=== PATIENT | female | born 1985 | race Caucasian/White ===

== ENCOUNTER 2017-07-27 22:14 | Emergency (ER) | payer MEDICARE ==
[~2017-07-27] VITALS: Ht 165.1 cm; Wt 52.2 kg
--- OUTSIDE RECORDS SUMMARY | 2017-07-27 22:27 | External Medical Summary Rpt | CCD ---
Author Author , GARRETT TUCKER Address Unknown Phone [email or web address] Care Team Providers Care Biology Laboratory Assistant Name Role Phone [facility] Unavailable Unavailable CENTER, [place] [facility] BRII LACEY Y, Unavailable Unavailable BROMNEIDA, BRII Y KYLE RAYMOND, Unavailable Unavailable KYLE RAYMOND [facility], [facility] ROSA CARLOS, Unavailable Unavailable ROSA CARLOS RONDAL E, Unavailable Unavailable DIEGO ANAYA EDWARD T, Unavailable Unavailable MIKAEL PORTER [facility] Unavailable Unavailable DRUGS, [facility] RACE, AFSHAN Lacy, RACE, Unavailable Unavailable JUANITA CHAUDHARY, Unavailable Unavailable JUANITA [facility] Unavailable [facility], [facility] Unavailable Unavailable CTR, [facility] YUMI CUNNING[place], Unavailable Unavailable [facility] [place] STRFERNIE JIMENEZ, Unavailable Unavailable STRJONOING MIGUEL ALANIZ, Unavailable Unavailable MIGUEL HINTON [facility] PEDIA, [facility] PEDIA Purpose Continuity of Care Document - 05-22-2007 through 2016 Problems Code Diagnosis DOS Provider Status 4476 UNSPECIFIED 10-13-2009 [facility] II 7242 LUMBAGO 10-05-2009 [facility] N EMERGENCY PHYS INC 8472 LUMBAR 10-05-2009 [facility] SPRAIN AND N EMERGENCY STRAIN PHYS INC E9278 OTH 10-05-2009 [facility] OVEREXERT&S N EMERGENCY TRENUOUS&RE PHYS INC PETITIVE MVMNTS/LOAD S V2542 SURVEILLANC 09-22-[address] [facility] E PREV PRSC INTRAUTERN CNTRACPT DEVC V700 ROUTINE 09-22-[address] [facility] GENERAL MEDICAL EXAM@HEALTH CARE FACL 14311 DYSPLASIA 12-08-2008 [facility] ZONIA UNSPECIFIED [facility] 86185 MODERATE 11-17-2008 [facility] 2331 CARCINOMA 11-03-2008 IN SITU OF [facility] 47167 PAP SMER 10-25-2008 [facility]/CO CERV W/HI HEALTH GRADE CENTRAL SQUAMOUS BANK ACCT INTRAEPITH LES 2662 OTHER 10-06-2008 DHS/CO B-COMPLEX HEALTH DEFICIENCIE CENTRAL S BANK ACCT V1329 PERSONAL HX 10-06-2008 [facility]&OBST ETRIC D/O V1589 OTH SPEC 10-06-2008 [facility]ZAR[facility] OT V2549 SURVEILLANC 10-06-2008 DHS/CO E OTH PREV HEALTH PRSC CENTRAL CONTRACEPT BANK ACCT METHOD 5990 URINARY 09-09-[address] [facility] TRACT INFECTION SITE NOT SPECIFIED 4619 ACUTE 06-08-[address] [facility] SINUSITIS, UNSPECIFIED 5589 OTH&UNSPEC 06-08-[address] [facility] NONINFECTIO US GASTROENTER ITIS&COLITI S 3671 MYOPIA 09-16-2007 [facility] V3000 SINGLE 05-22-2007 [facility] PEDIA W/O Medications Na ND Rx Da Fi Fi Am Da Di Ph RX Ph St me C No te ll ll ou ys ag ar # ys at rm s nt no ma ic us Or Da si cy ia de te s n re d CY 59 02 02 00 15 5 PI 60 CO Ac CL 74 -1 -2 .0 C/ 43 NN ti OB 60 8- 6- 00 DB 44 ve EN 21 20 20 A 7 FA ZA 10 10 10 FA RR KS 6 SD AH IN LY J E 5 DI MG SC TA DR CHANTAL UG ET S NA 68 02 02 00 20 10 PI 60 CO Ac KS 46 -1 -2 .0 C/ 43 NN ti OX 20 8- 6- 00 DB 51 ve EN 19 20 20 A 1 FA 00 10 10 FA RR 50 5 SD AH 0 LY J MG DI TA SC BL ET DR CHATMAN S LO 51 01 01 00 60 30 PI 60 HU Ac RA 67 -1 -2 .0 C/ 40 GH ti TA 22 1- 8- 00 DB 48 ES ve DI 07 20 20 A 0 NE 30 10 10 FA PA 5 8 SD TR LY IC MG K /5 DI D SC ML DR PINA UG RU S P DE 60 04 11 04 5. 17 PI 60 CA Ac SM 50 -2 -1 00 C/ 20 RP ti OP 50 7- 9- 0 DB 55 EN ve RE 81 20 20 A 4 TE SS 50 09 09 FA R IN 0 SD SD LY CH 0. EL 1 DI LE MG SC /M L DR ELY UG RA S Y DE 60 04 11 03 5. 17 PI 60 CA Ac SM 50 -2 -0 00 C/ 20 RP ti OP 50 7- 5- 0 DB 55 EN ve RE 81 20 20 A 4 TE SS 50 09 09 FA R IN 0 SD SD LY CH 0. EL 1 DI LE MG SC /M L DR ELY RA S Y DE 60 04 10 02 5. 17 PI 60 CA Ac SM 50 -2 -2 00 C/ 20 RP ti OP 50 7- 2- 0 DB 55 EN ve RE 81 20 20 A 4 TE SS 50 09 09 FA R IN 0 SD SD LY CH 0. EL 1 DI LE MG SC /M L DR ELY RA S Y DE 60 04 10 01 5. 17 PI 60 CA Ac SM 50 -2 -0 00 C/ 20 RP ti OP 50 7- 8- 0 DB 55 EN ve RE 81 20 20 A 4 TE SS 50 09 09 FA R IN 0 SD SD LY CH 0. EL 1 DI LE MG SC /M L DR ELY RA S Y DE 60 04 09 00 5. 17 PI 60 CA Ac SM 50 -2 -1 00 C/ 20 RP ti OP 50 7- 0- 0 DB 55 EN ve RE 81 20 20 A 4 TE SS 50 09 09 FA R IN 0 SD SD LY CH 0. EL 1 DI LE MG SC /M L DR ELY RA S Y DE 60 04 08 05 5. 17 PI 60 SM Ac SM 50 -2 -2 00 C/ 20 IT ti OP 50 7- 7- 0 DB 50 H ve RE 81 20 20 A 4 II SS 50 09 09 FA I IN 0 SD WI LY LB 0. UR 1 DI N MG SC J /M L DR ELY UG RA S Y DE 60 04 07 04 5. 17 PI 60 SM Ac SM 50 -2 -3 00 C/ 20 IT ti OP 50 7- 0- 0 DB 50 H ve RE 81 20 20 A 4 II SS 50 09 09 FA I IN 0 SD WI LY LB 0. UR 1 DI N MG SC J /M L DR ELY UG RA S Y DE 60 04 07 03 5. 17 PI 60 SM Ac SM 50 -2 -1 00 C/ 20 IT ti OP 50 7- 6- 0 DB 50 H ve RE 81 20 20 A 4 II SS 50 09 09 FA I IN 0 SD WI LY LB 0. UR 1 DI N MG SC J /M L DR JHOANA CHATMAN RA S Y DE 60 04 06 02 5. 17 PI 60 SM Ac SM 50 -2 -1 00 C/ 20 IT ti OP 50 7- 8- 0 DB 50 H ve RE 81 20 20 A 4 II SS 50 09 09 FA I IN 0 SD WI LY LB 0. UR 1 DI N MG SC J /M L DR JHOANA CHATMAN RA S Y DE 60 04 05 01 5. 17 PI 60 SM Ac SM 50 -2 -2 00 C/ 20 IT ti OP 50 7- 1- 0 DB 50 H ve RE 81 20 20 A 4 II SS 50 09 09 FA I IN 0 SD WI LY LB 0. UR 1 DI N MG SC J /M L DR JHOANA CHATMAN RA S Y DE 60 04 05 00 5. 17 PI 60 SM Ac SM 50 -2 -0 00 C/ 20 IT ti OP 50 7- 7- 0 DB 50 H ve RE 81 20 20 A 4 II SS 50 09 09 FA I IN 0 SD WI LY LB 0. UR 1 DI N MG SC J /M L DR ELY RA S Y DE 60 12 04 05 5. 17 PI 60 CA Ac SM 50 -3 -2 00 C/ 10 RP ti OP 50 0- 3- 0 DB 87 EN ve RE 81 20 20 A 5 TE SS 50 08 09 FA R IN 0 SD SD LY CH 0. EL 1 DI LE MG SC /M L DR JHOANA CHATMAN RA S Y DE 60 12 03 04 5. 17 PI 60 CA Ac SM 50 -3 -2 00 C/ 10 RP ti OP 50 0- 6- 0 DB 87 EN ve RE 81 20 20 A 5 TE SS 50 08 09 FA R IN 0 SD SD LY CH 0. EL 1 DI LE MG SC /M L DR JHOANA CHATMAN RA S Y DE 60 12 03 03 5. 17 PI 60 CA Ac SM 50 -3 -1 00 C/ 10 RP ti OP 50 0- 2- 0 DB 87 EN ve RE 81 20 20 A 5 TE SS 50 08 09 FA R IN 0 SD SD LY CH 0. EL 1 DI LE MG SC /M L DR JHOANA CHATMAN RA S Y DE 60 12 02 02 5. 17 PI 60 CA Ac SM 50 -3 -2 00 C/ 10 RP ti OP 50 0- 6- 0 DB 87 EN ve RE 81 20 20 A 5 TE SS 50 08 09 FA R IN 0 SD SD LY CH 0. EL 1 DI LE MG SC /M L DR ELY UG RA S Y DE 60 12 02 01 5. 17 PI 60 CA Ac SM 50 -3 -1 00 C/ 10 RP ti OP 50 0- 2- 0 DB 87 EN ve RE 81 20 20 A 5 TE SS 50 08 09 FA R IN 0 SD SD LY CH 0. EL 1 DI LE MG SC /M L DR JHOANA CHATMAN RA S Y 00 01 01 00 9. 3 PI 60 RA Ac 60 -2 -3 00 C/ 12 CE ti 35 3- 0- 0 DB 92 ve 14 20 20 A 0 DA 13 09 09 FA 2 SD D LY F DI SC DR LURDES S NI 00 01 01 00 20 10 PI 60 RA Ac TR 18 -2 -3 .0 C/ 12 CE ti OF 50 3- 0- 00 DB 92 ve UR 12 20 20 A 1 DA AN 21 09 09 FA TO 0 SD D IN LY F MO DI NO SC -M CR DR LURDES 10 S 0 MG DE 60 12 01 00 5. 17 PI 60 CA Ac SM 50 -3 -1 00 C/ 10 RP ti OP 50 0- 5- 0 DB 87 EN ve RE 81 20 20 A 5 TE SS 50 08 09 FA R IN 0 SD SD LY CH 0. EL 1 DI LE MG SC /M L DR ELY UG RA S Y DE 60 10 01 03 5. 17 PI 60 SM Ac SM 50 -0 -0 00 C/ 03 IT ti OP 50 7- 1- 0 DB 67 H ve RE 81 20 20 A 5 II SS 50 08 09 FA I IN 0 SD WI LY LB 0. UR 1 DI N MG SC J /M L DR ELY RA S Y DE 60 10 12 03 5. 17 PI 60 SM Ac SM 50 -0 -1 00 C/ 03 IT ti OP 50 7- 8- 0 DB 67 H ve RE 81 20 20 A 5 II SS 50 08 08 FA I IN 0 SD WI LY LB 0. UR 1 DI N MG SC J /M L DR ELY UG RA S Y DE 60 10 12 02 5. 17 PI 60 SM Ac SM 50 -0 -0 00 C/ 03 IT ti OP 50 7- 4- 0 DB 67 H ve RE 81 20 20 A 5 II SS 50 08 08 FA I IN 0 SD WI LY LB 0. UR 1 DI N MG SC J /M L DR JHOANA CHATMAN RA S Y CE 68 11 11 00 60 10 PI 60 BROOKE Ac FD 18 -1 -2 .0 C/ 06 RR ti IN 00 1- 0- 00 DB 82 OW ve IR 72 20 20 A 9 DA 32 08 08 FA LE 25 0 SD -C 0 LY OX MG /5 DI PE SC TE ML R DR Ana CHATMAN SP S 64 11 11 00 30 10 PI 60 BROOKE Ac 37 -1 -2 .0 C/ 06 RR ti 60 1- 0- 00 DB 83 OW ve 72 20 20 A 0 DA 63 08 08 FA LE 0 SD -C LY OX DI PE SC TE R DR Ana CHATMAN S DE 60 10 11 01 5. 17 PI 60 SM Ac SM 50 -0 -0 00 C/ 03 IT ti OP 50 7- 7- 0 DB 67 H ve RE 81 20 20 A 5 II SS 50 08 08 FA I IN 0 SD WI LY LB 0. UR 1 DI N MG SC J /M L DR JHOANA CHATMAN RA S Y KS 68 10 11 00 20 5 PI 60 CA Ac OM 38 -2 -0 .0 C/ 04 RP ti ET 20 2- 7- 00 DB 92 EN ve MILNER 04 20 20 A 7 TE ZI 11 08 08 FA R NE 0 SD SD LY CH 25 EL DI LE MG SC TA DR CHANTAL CHATMAN ET S [place] 00 10 11 00 6. 5 PI 60 CA Ac IT 78 -2 -0 00 C/ 04 RP ti HR 11 2- 7- 0 DB 92 EN ve OM 49 20 20 A 8 TE YC 66 08 08 FA R IN 8 SD SD LY CH 25 EL 0 DI LE MG SC TA DR CHANTAL CHATMAN ET S DE 60 10 10 00 5. 17 PI 60 SM Ac SM 50 -0 -2 00 C/ 03 IT ti OP 50 7- 3- 0 DB 67 H ve RE 81 20 20 A 5 II SS 50 08 08 FA I IN 0 SD WI LY LB 0. UR 1 DI N MG SC J /M L DR JHOANA CHATMAN RA S Y AZ 59 10 10 00 15 5 PI 60 BROOKE Ac IT 76 -0 -2 .0 C/ 03 RR ti HR 23 7- 3- 00 DB 66 OW ve OM 11 20 20 A 5 DA YC 00 08 08 FA LE IN 1 SD -C LY OX 10 0 DI PE MG SC TE /[address] Ana CHATMAN S PEREZ SP 64 10 10 00 30 10 PI 60 BROOKE Ac 37 -0 -2 .0 C/ 03 RR ti 60 7- 3- 00 DB 66 OW ve 72 20 20 A 3 DA 63 08 08 FA LE 0 SD -C LY OX DI PE SC TE R DR Ana Cat HY 24 10 10 00 29 7 PI [address] 38 -0 -2 .0 C/ 03 RR ti OC 50 7- 3- 00 DB 65 OW ve OR 19 20 20 A 7 DA TI 00 08 08 FA LE SO 3 SD -C NE LY OX 0. DI PE 5% SC TE R CR DR Ana CHATMAN M S DE 60 09 09 02 5. 16 PI 51 SM Ac SM 50 -2 -2 00 C/ 85 IT ti OP 50 7- 6- 0 DB 17 H ve RE 81 20 20 A II SS 50 07 08 FA I IN 0 SD WI LY LB 0. UR 1 DI N MG SC J /M L DR JHOANA CHATMAN RA S Y DE 60 09 09 01 5. 16 PI 51 No Ac SM 50 -2 -1 00 C/ 85 t ti OP 50 7- 1- 0 DB 17 Av ve RE 81 20 20 A ai SS 50 07 08 FA la IN 0 SD bl LY e 0. 1 DI MG SC /M L DR JHOANA CHATMAN S Y DE 60 09 08 00 5. 16 PI 51 No Ac SM 50 -2 -1 00 C/ 85 t ti OP 50 7- 4- 0 DB 17 Av ve RE 81 20 20 A ai SS 50 07 08 FA la IN 0 SD bl LY e 0. 1 DI MG SC /M L DR JHOANA CHATMAN RA S Y DE 60 09 08 11 5. 16 PI 48 No Ac SM 50 -2 -0 00 C/ 76 t ti OP 50 7- 1- 0 DB 16 Av ve RE 81 20 20 A ai SS 50 07 08 FA la IN 0 SD bl LY e 0. 1 DI MG SC /M L DR JHOANA CHATMAN RA S Y DE 60 09 07 10 5. 16 PI 48 No Ac SM 50 -2 -0 00 C/ 76 t ti OP 50 7- 3- 0 DB 16 Av ve RE 81 20 20 A ai SS 50 07 08 FA la IN 0 SD bl LY e 0. 1 DI MG SC /M L DR JHOANA CHATMAN RA S Y DE 60 09 05 08 5. 16 PI 48 No Ac SM 50 -2 -2 00 C/ 76 t ti OP 50 7- 2- 0 DB 16 Av ve RE 81 20 20 A ai SS 50 07 08 FA la IN 0 SD bl LY e 0. 1 DI MG SC /M L DR ELY UG RA S Y NE 24 04 05 00 10 7 PI 50 No Ac OM 20 -2 -0 .0 C/ 91 t ti YC 80 2- 8- 00 DB 96 Av ve IN 63 20 20 A ai -P 11 08 08 FA la OL 0 SD bl YM LY e YX IN DI -H SC C EA DR R LURDES SO S LN AM 00 04 05 00 10 10 PI 50 No Ac OX 09 -2 -0 0. C/ 89 t ti IC 34 1- 8- 00 DB 66 Av ve IL 15 20 20 0 A ai LI 57 08 08 FA la N 3 SD bl 25 LY e 0 MG DI /[address] CHATMAN PEREZ S SP DE 60 09 05 07 5. 16 PI 48 No Ac SM 50 -2 -0 00 C/ 76 t ti OP 50 7- 8- 0 DB 16 Av ve RE 81 20 20 A ai SS 50 07 08 FA la IN 0 SD bl LY e 0. 1 DI MG SC /M L DR JHOANA CHATMAN RA S Y DE 60 09 04 06 5. 17 PI 48 No Ac SM 50 -2 -1 00 C/ 76 t ti OP 50 7- 0- 0 DB 16 Av ve RE 81 20 20 A ai SS 50 07 08 FA la IN 0 SD bl LY e 0. 1 DI MG SC /M L DR JHOANA CHATMAN RA S Y DE 60 09 04 05 5. 17 PI 48 No Ac SM 50 -2 -0 00 C/ 76 t ti OP 50 7- 7- 0 DB 16 Av ve RE 81 20 20 A ai SS 50 07 08 FA la IN 0 SD bl LY e 0. 1 DI MG SC /M L DR ELY UG RA S Y 64 02 03 00 30 30 PI 50 No Ac 37 -2 -2 .0 C/ 28 t ti 60 2- 6- 00 DB 84 Av ve 72 20 20 A ai 63 08 08 FA la 0 SD bl LY e DI SC DR UG S DE 60 09 03 04 5. 17 PI 48 No Ac SM 50 -2 -2 00 C/ 76 t ti OP 50 7- 6- 0 DB 16 Av ve RE 81 20 20 A ai SS 50 07 08 FA la IN 0 SD bl LY e 0. 1 DI MG SC /M L DR JHOANA CHATMAN RA S Y CL 51 02 03 00 30 12 PI 50 No Ac OT 67 -2 -2 .0 C/ 28 t ti RI 21 2- 6- 00 DB 83 Av ve MA 27 20 20 A ai ZO 50 08 08 FA la LE 2 SD bl LY e 1% DI CR SC EA M DR LURDES Cat DE 60 09 03 03 5. 17 PI 48 No Ac SM 50 -2 -2 00 C/ 76 t ti OP 50 7- 4- 0 DB 16 Av ve RE 81 20 20 A ai SS 50 07 08 FA la IN 0 SD bl LY e 0. 1 DI MG SC /M L DR JHOANA CHATMAN RA S Y Results Labs Lab Lab Date Result Refere Interp Status Commen Order Detail nces retati t Range on Pap Smear Report (06-07-2013) Medical complet ed Therapy : IUD LMP: 3 complet 013 MONTHS ed AGO CLINICA complet 013 L ed HISTORY CLINICA complet LHISTOR ed YPAP A. complet VAGINAL ed /CERVIC AL/ENDO CERVICA L SCREENI NG AUTO THIN LAYER PREP TISSUES complet 013 : ed DEMAR : home ed 3- SUBM DR: Pj Davalos SPEC : [id number] ed 6 RECD : STATUS: BIGG FRAZIER NUM : [id number] ------- complet ------- ed ------- ------- ------- ------- ------- ------- ------- ------- ------- --- BOB complet Merritt MARIA DEL CARMEN Cat ed 28/F [facility] [id number] MARIO Wan Patient complet ed Age/Sex Locatio n Account Attendi ng Physici an RUN complet 013 TIME: ed 1210 RUN complet 013 DATE: ed 3 [facility] LAB *LIVE* PAGE 1 Signed complet 013 ed ___(sig nature on file)__ __ Alex Kyle MD 3 1210 Additio complet 013 nal ed Comment s: Shift complet 013 in ed obi suggest nicole of bacteri al vaginos is Negativ complet 013 e for ed intraep ithelia l lesion or maligna ncy GENERAL complet 013 ed CATEGOR IZATION : Endocer complet 013 vical ed or metapla stic cells present Satisfa complet ctory ed for evaluat ion ADEQUAC complet 013 Y OF ed THE SPECIME N: Additio complet nal ed Info: Previou s pap 9 DDTG-CE HG (SCR). Procedures Procedure DOS Code Location Performer Comment BLOOD 84079 [place] HASSAN COUNT 0 [facility] CENTER DIFRNTL WBC C-REACTIV 22679 [place] Cheng PROTEIN 0 [facility] [place] [address] [place], SURG 9 [facility] GROSS&[place] [address] PATHOLOGY [facility] ROSCOPIC EXAM CONIZATIO 41[address] М[facility]РИНА [place], N CERVIX 9 AND JUANITA W/WO D&C ZONIA RPR ELTRD PSC EXC COLPOSCOP 63541 М[facility]РИНА [place], Y CERVIX 9 AND JUANITA UPPR/ADJC ZONIA NT VAGINA [place] [address] ROSCOPIC EXAM CHOLESTER 07[address] DHS/CO BATH CO OL 9 [facility] LE BLOOD BANK ACCT TOTAL GLUC BLD 79845 DHS/CO BATH CO GLUC MNTR 9 [facility] CLEARED BANK ACCT FDA SPEC HOME USE BLOOD 44528 DHS/CO BATH CO COUNT 9 [facility] HEMOGLOBI [facility] N BANK ACCT IADNA 89656 DHS/CO BATH CO CHLAMYDIA 9 [facility] TRACHOMAT BANK ACCT IS AMPLIFIED PROBE TQ IADNA 70522 DHS/CO BATH CO NEISSERIA 9 [facility] GONORRHOE BANK ACCT AE AMPLIFIED PROBE TQ CYTP [address] [facility] CARLOS, CERVICAL/ 9 [facility] REQ INTERP PHYSICIAN CYTP [address] [facility]ANK CERV/VAG 9 MEDICAL MEDICAL AUTO THIN CTR CTR LAYER PREP MNL SCREEN URNLS DIP 17633 [place], [address] [place] [address] F STICK/TAB LET RGNT AUTO W/O MICROSCOP Y OPHTH 41493 [facility] 8 AND EDWARD T XM&EVAL [facility]ERMAN COMPRHNSV VISION ESTAB PT CTR PLLC 1/> DETERMINA 84713 [facility] PORTER TION 8 AND EDANGELA T REFRACTIV PORTER E STATE VISION CTR PLL[facility] HX&XM NML 45009 [facility]IFL[facility] NB INFT 7 Y OF RHY INITIATIO [place] N DX&TX PEDIA Encounters Encounter Start End Date Code Location Performer Type Date OFFICE 55949 [facility] LARRY CUNN[place] 0 0 PHYSICIAN YUMI VARGAS 20 S MINUTES CORPORATI ON II HOSPITAL [place] - 0 0 [facility] EM[facility]GENC[facility] [address] [facility] JACLYN, 0 0 TANESHA CORTEZ E DEPARTMEN EMERGENCY T VISIT PHYS INC MODERATE SEVERITY OFFICE 37009 [place] [facility] 0 0 [facility] BRII T VISIT Y 15 MINUTES OFFICE 71334 LARRY PEREZ 9 9 AND JUANITA T VISIT ZONIA 10 PSC MINUTES [facility] - 9 9 [facility] OFFICE 81932 МАРИНА [facility], CONSULTAT 9 9 AND JUANITA BRAR NEW/ESTAB PSC PATIENT 15 MIN OFFICE 99050 [facility] CONSULTAT 9 9 AND JUANITA BRAR NEW/ESTAB PSC PATIENT 30 MIN [facility] 9 9 [facility] OFF[facility] 87836 DHS/CO BATH CO OUTPATIEN 9 9 [facility] T VISIT CENTRAL ODESSA 15 BANK ACCT MINUTES PERIODIC 62784 DHS/CO BATH CO PREVENTIV 9 9 [facility] E MED EST [facility] PATIENT BANK ACCT 18-39 YRS [facility] 9 9 MEDICAL OUTPATIEN [facility] T OFFICE 48879 [facility] [place], OUTPATIEN 9 9 [facility] VISIT 15 MINUTES OFFICE 75025 BATH RAYMOND OUTPATIEN 8 8 [place] [address] KYLE [facility]
--- OUTSIDE RECORDS SUMMARY | 2017-07-27 22:27 | External Medical Summary Rpt | CCD ---
Author Author , GARRETT TUCKER Address Unknown Phone Care Team Providers Care Endoscopy Tech Name Role Phone [facility] Unavailable Unavailable CENTER, [facility] BRII LACEY Y, Unavailable Unavailable BROMNEIDA, BRII Y KYLE RAYMOND, Unavailable Unavailable KYLE RAYMOND [facility] ROSA CARLOS, Unavailable Unavailable ROSA CARLOS RONDAL E, Unavailable Unavailable DIEGO ANAYA EDWARD T, Unavailable Unavailable MIKAEL PORTER [facility] Unavailable Unavailable DRUGS, [facility] RACE, AFSHAN Lacy, RACE, Unavailable Unavailable JUANITA CHAUDHARY, Unavailable Unavailable JUANITA [facility] Unavailable [facility], [facility] Unavailable Unavailable CTR, [facility] YUMI CUNNINGHAM, Unavailable Unavailable YUMI CUNNINGHAM STRFERNIE JIMENEZ, Unavailable Unavailable STRJONOING MIGUEL ALANIZ, Unavailable Unavailable MIGUEL HINTON [facility] PEDIA, [facility] PEDIA Purpose Continuity of Care Document - 05-22-2007 through 2016 Problems Code Diagnosis DOS Provider Status 4476 UNSPECIFIED 10-13-2009 [facility] II 7242 LUMBAGO 10-05-2009 [facility] N EMERG[facility]Y [facility]YS INC 8472 LUMBAR 10-05-2009 [facility] SPRAIN AND N EMERGENCY STRAIN PHYS INC E9278 OTH 10-05-2009 [facility] OVEREXERT&S N EMERGENCY TRENUOUS&RE PHYS INC PETITIVE MVMNTS/LOAD S V2542 SURVEILLANC 09-22-2009 [facility] E PREV PRSC INTRAUTERN CNTRACPT DEVC V700 ROUTINE 09-22-2009 [facility] GENERAL MEDICAL EXAM@HEALTH CARE FACL 46683 DYSPLASIA 12-08-2008 [facility] ZONIA UNSPECIFIED [facility] 65508 MODERATE 11-17-2008 [facility] 2331 CARCINOMA 11-03-2008 [facility] OF [facility] 21382 PAP SMER 10-25-2008 DHS/CO CERV W/HI HEALTH [...] BANK ACCT METHOD 5990 URINARY 09-09-2008 [facility] TRACT INFECTION SITE NOT SPECIFIED 4619 ACUTE 06-08-2008 [facility] SINUSITIS, UNSPECIFIED 5589 OTH&UNSPEC 06-08-2008 [facility] NONINFECTIO US GASTROENTER ITIS&COLITI S 3671 MYOPIA 09-16-2007 [facility] V3000 SINGLE 05-22-2007 [facility] PEDIA W/O Medications Na ND Rx [...] FA ZA 10 10 10 FA RR WA 6 WI AH IN LY J E 5 DI MG SC TA DR CHANTAL UG ET S NA 68 02 02 00 20 10 PI 60 CO Ac WA 46 -1 -2 .0 C/ 43 NN ti OX 20 8- 6- 00 DB 51 ve EN 19 20 20 A 1 FA 00 10 10 FA RR 50 5 WI AH 0 LY J MG DI TA SC BL ET DR CHATMAN S LO 51 01 01 00 60 30 PI 60 HU Ac RA 67 -1 -2 .0 C/ 40 GH ti TA 22 1- 8- 00 DB 48 ES ve DI 07 20 20 A 0 NE 30 10 10 FA PA 5 8 WI TR LY IC MG K /5 DI D SC ML DR PINA UG RU S P DE 60 04 11 04 5. 17 PI 60 CA Ac SM 50 -2 -1 00 C/ 20 RP ti OP 50 7- 9- 0 DB 55 EN ve RE 81 20 20 A 4 TE SS 50 09 09 FA R IN 0 WI WI LY CH 0. EL 1 DI LE MG SC /M L DR ELY UG RA S Y DE 60 04 11 03 5. 17 PI 60 CA Ac SM 50 -2 -0 00 C/ 20 RP ti OP 50 7- 5- 0 DB 55 EN ve RE 81 20 20 A 4 TE SS 50 09 09 FA R IN 0 WI WI LY CH 0. EL 1 DI LE MG SC /M L DR ELY RA S Y DE 60 04 10 02 5. 17 PI 60 CA Ac SM 50 -2 -2 00 C/ 20 RP ti OP 50 7- 2- 0 DB 55 EN ve RE 81 20 20 A 4 TE SS 50 09 09 FA R IN 0 WI WI LY CH 0. EL 1 DI LE MG SC /M L DR ELY RA S Y DE 60 04 10 01 5. 17 PI 60 CA Ac SM 50 -2 -0 00 C/ 20 RP ti OP 50 7- 8- 0 DB 55 EN ve RE 81 20 20 A 4 TE SS 50 09 09 FA R IN 0 WI WI LY CH 0. EL 1 DI LE MG SC /M L DR ELY RA S Y DE 60 04 09 00 5. 17 PI 60 CA Ac SM 50 -2 -1 00 C/ 20 RP ti OP 50 7- 0- 0 DB 55 EN ve RE 81 20 20 A 4 TE SS 50 09 09 FA R IN 0 WI WI LY CH 0. EL 1 DI LE MG SC /M L DR ELY RA S Y DE 60 04 08 05 5. 17 PI 60 SM Ac SM 50 -2 -2 00 C/ 20 IT ti OP 50 7- 7- 0 DB 50 H ve RE 81 20 20 A 4 II SS 50 09 09 FA I IN 0 WI WI LY LB 0. UR 1 DI N MG SC J /M L DR ELY UG RA S Y DE 60 04 07 04 5. 17 PI 60 SM Ac SM 50 -2 -3 00 C/ 20 IT ti OP 50 7- 0- 0 DB 50 H ve RE 81 20 20 A 4 II SS 50 09 09 FA I IN 0 WI WI LY LB 0. UR 1 DI N MG SC J /M L DR ELY UG RA S Y DE 60 04 07 03 5. 17 PI 60 SM Ac SM 50 -2 -1 00 C/ 20 IT ti OP 50 7- 6- 0 DB 50 H ve RE 81 20 20 A 4 II SS 50 09 09 FA I IN 0 WI WI LY LB 0. UR 1 DI N MG SC J /M L DR JHOANA CHATMAN RA S Y DE 60 04 06 02 5. 17 PI 60 SM Ac SM 50 -2 -1 00 C/ 20 IT ti OP 50 7- 8- 0 DB 50 H ve RE 81 20 20 A 4 II SS 50 09 09 FA I IN 0 WI WI LY LB 0. UR 1 DI N MG SC J /M L DR JHOANA CHATMAN RA S Y DE 60 04 05 01 5. 17 PI 60 SM Ac SM 50 -2 -2 00 C/ 20 IT ti OP 50 7- 1- 0 DB 50 H ve RE 81 20 20 A 4 II SS 50 09 09 FA I IN 0 WI WI LY LB 0. UR 1 DI N MG SC J /M L DR JHOANA CHATMAN RA S Y DE 60 04 05 00 5. 17 PI 60 SM Ac SM 50 -2 -0 00 C/ 20 IT ti OP 50 7- 7- 0 DB 50 H ve RE 81 20 20 A 4 II SS 50 09 09 FA I IN 0 WI WI LY LB 0. UR 1 DI N MG SC J /M L DR ELY RA S Y DE 60 12 04 05 5. 17 PI 60 CA Ac SM 50 -3 -2 00 C/ 10 RP ti OP 50 0- 3- 0 DB 87 EN ve RE 81 20 20 A 5 TE SS 50 08 09 FA R IN 0 WI WI LY CH 0. EL 1 DI LE MG SC /M L DR JHOANA CHATMAN RA S Y DE 60 12 03 04 5. 17 PI 60 CA Ac SM 50 -3 -2 00 C/ 10 RP ti OP 50 0- 6- 0 DB 87 EN ve RE 81 20 20 A 5 TE SS 50 08 09 FA R IN 0 WI WI LY CH 0. EL 1 DI LE MG SC /M L DR JHOANA CHATMAN RA S Y DE 60 12 03 03 5. 17 PI 60 CA Ac SM 50 -3 -1 00 C/ 10 RP ti OP 50 0- 2- 0 DB 87 EN ve RE 81 20 20 A 5 TE SS 50 08 09 FA R IN 0 WI WI LY CH 0. EL 1 DI LE MG SC /M L DR JHOANA CHATMAN RA S Y DE 60 12 02 02 5. 17 PI 60 CA Ac SM 50 -3 -2 00 C/ 10 RP ti OP 50 0- 6- 0 DB 87 EN ve RE 81 20 20 A 5 TE SS 50 08 09 FA R IN 0 WI WI LY CH 0. EL 1 DI LE MG SC /M L DR ELY UG RA S Y DE 60 12 02 01 5. 17 PI 60 CA Ac SM 50 -3 -1 00 C/ 10 RP ti OP 50 0- 2- 0 DB 87 EN ve RE 81 20 20 A 5 TE SS 50 08 09 FA R IN 0 WI WI LY CH 0. EL 1 DI LE MG SC /M L DR JHOANA CHATMAN RA S Y 00 01 01 00 9. 3 PI 60 RA Ac 60 -2 -3 00 C/ 12 CE ti 35 3- 0- 0 DB 92 ve 14 20 20 A 0 DA 13 09 09 FA 2 WI D LY F DI SC DR LURDES S NI 00 01 01 00 20 10 PI 60 RA Ac TR 18 -2 -3 .0 C/ 12 CE ti OF 50 3- 0- 00 DB 92 ve UR 12 20 20 A 1 DA AN 21 09 09 FA TO 0 WI D IN LY F MO DI NO SC -M CR DR LURDES 10 S 0 MG DE 60 12 01 00 5. 17 PI 60 CA Ac SM 50 -3 -1 00 C/ 10 RP ti OP 50 0- 5- 0 DB 87 EN ve RE 81 20 20 A 5 TE SS 50 08 09 FA R IN 0 WI WI LY CH 0. EL 1 DI LE MG SC /M L DR ELY UG RA S Y DE 60 10 01 03 5. 17 PI 60 SM Ac SM 50 -0 -0 00 C/ 03 IT ti OP 50 7- 1- 0 DB 67 H ve RE 81 20 20 A 5 II SS 50 08 09 FA I IN 0 WI WI LY LB 0. UR 1 DI N MG SC J /M L DR ELY RA S Y DE 60 10 12 03 5. 17 PI 60 SM Ac SM 50 -0 -1 00 C/ 03 IT ti OP 50 7- 8- 0 DB 67 H ve RE 81 20 20 A 5 II SS 50 08 08 FA I IN 0 WI WI LY LB 0. UR 1 DI N MG SC J /M L DR ELY UG RA S Y DE 60 10 12 02 5. 17 PI 60 SM Ac SM 50 -0 -0 00 C/ 03 IT ti OP 50 7- 4- 0 DB 67 H ve RE 81 20 20 A 5 II SS 50 08 08 FA I IN 0 WI WI LY LB 0. UR 1 DI N MG SC J /M L DR JHOANA CHATMAN RA S Y CE 68 11 11 00 60 10 PI 60 BROOKE Ac FD 18 -1 -2 .0 C/ 06 RR ti IN 00 1- 0- 00 DB 82 OW ve IR 72 20 20 A 9 DA 32 08 08 FA LE 25 0 WI -C 0 LY OX MG /5 DI PE SC TE ML R DR Ana CHATMAN SP S 64 11 11 00 30 10 PI 60 BROOKE Ac 37 -1 -2 .0 C/ 06 RR ti 60 1- 0- 00 DB 83 OW ve 72 20 20 A 0 DA 63 08 08 FA LE 0 WI -C LY OX DI PE SC TE R DR Ana CHATMAN S DE 60 10 11 01 5. 17 PI 60 SM Ac SM 50 -0 -0 00 C/ 03 IT ti OP 50 7- 7- 0 DB 67 H ve RE 81 20 20 A 5 II SS 50 08 08 FA I IN 0 WI WI LY LB 0. UR 1 DI N MG SC J /M L DR JHOANA CHATMAN RA S Y WA 68 10 11 00 20 5 PI 60 CA Ac OM 38 -2 -0 .0 C/ 04 RP ti ET 20 2- 7- 00 DB 92 EN ve MILNER 04 20 20 A 7 TE ZI 11 08 08 FA R NE 0 WI WI LY CH 25 EL DI LE MG SC TA DR CHANTAL CHATMAN ET S AZ 00 10 11 00 6. 5 PI 60 CA Ac IT 78 -2 -0 00 C/ 04 RP ti HR 11 2- 7- 0 DB 92 EN ve OM 49 20 20 A 8 TE YC 66 08 08 FA R IN 8 WI WI LY CH 25 EL 0 DI LE MG SC TA DR CHANTAL CHATMAN ET S DE 60 10 10 00 5. 17 PI 60 SM Ac SM 50 -0 -2 00 C/ 03 IT ti OP 50 7- 3- 0 DB 67 H ve RE 81 20 20 A 5 II SS 50 08 08 FA I IN 0 WI WI LY LB 0. UR 1 DI N MG SC J /M L DR JHOANA CHATMAN RA S Y AZ 59 10 10 00 15 5 PI 60 BROOKE Ac IT 76 -0 -2 .0 C/ 03 RR ti HR 23 7- 3- 00 DB 66 OW ve OM 11 20 20 A 5 DA YC 00 08 08 FA LE IN 1 WI -C LY OX 10 0 DI PE MG SC TE /[address] Ana CHATMAN S PEREZ SP 64 10 10 00 30 10 PI 60 BROOKE Ac 37 -0 -2 .0 C/ 03 RR ti 60 7- 3- 00 DB 66 OW ve 72 20 20 A 3 DA 63 08 08 FA LE 0 WI -C LY OX DI PE SC TE R DR Ana Cat HY 24 10 10 00 29 7 PI [address] 38 -0 -2 .0 C/ 03 RR ti OC 50 7- 3- 00 DB 65 OW ve OR 19 20 20 A 7 DA TI 00 08 08 FA LE SO 3 WI -C NE LY OX 0. DI PE 5% SC TE R CR DR Ana CHATMAN M S DE 60 09 09 02 5. 16 PI 51 SM Ac SM 50 -2 -2 00 C/ 85 IT ti OP 50 7- 6- 0 DB 17 H ve RE 81 20 20 A II SS 50 07 08 FA I IN 0 WI WI LY LB 0. UR 1 DI N MG SC J /M L DR JHOANA CHATMAN RA S Y DE 60 09 09 01 5. 16 PI 51 No Ac SM 50 -2 -1 00 C/ 85 t ti OP 50 7- 1- 0 DB 17 Av ve RE 81 20 20 A ai SS 50 07 08 FA la IN 0 WI bl LY e 0. 1 DI MG SC /M L DR JHOANA CHATMAN S Y DE 60 09 08 00 5. 16 PI 51 No Ac SM 50 -2 -1 00 C/ 85 t ti OP 50 7- 4- 0 DB 17 Av ve RE 81 20 20 A ai SS 50 07 08 FA la IN 0 WI bl LY e 0. 1 DI MG SC /M L DR JHOANA CHATMAN RA S Y DE 60 09 08 11 5. 16 PI 48 No Ac SM 50 -2 -0 00 C/ 76 t ti OP 50 7- 1- 0 DB 16 Av ve RE 81 20 20 A ai SS 50 07 08 FA la IN 0 WI bl LY e 0. 1 DI MG SC /M L DR JHOANA CHATMAN RA S Y DE 60 09 07 10 5. 16 PI 48 No Ac SM 50 -2 -0 00 C/ 76 t ti OP 50 7- 3- 0 DB 16 Av ve RE 81 20 20 A ai SS 50 07 08 FA la IN 0 WI bl LY e 0. 1 DI MG SC /M L DR JHOANA CHATMAN RA S Y DE 60 09 05 08 5. 16 PI 48 No Ac SM 50 -2 -2 00 C/ 76 t ti OP 50 7- 2- 0 DB 16 Av ve RE 81 20 20 A ai SS 50 07 08 FA la IN 0 WI bl LY e 0. 1 DI MG SC /M L DR ELY UG RA S Y NE 24 04 05 00 10 7 PI 50 No Ac OM 20 -2 -0 .0 C/ 91 t ti YC 80 2- 8- 00 DB 96 Av ve IN 63 20 20 A ai -P 11 08 08 FA la OL 0 WI bl YM LY e YX IN DI -H SC C EA DR R LURDES SO S LN AM 00 04 05 00 10 10 PI 50 No Ac OX 09 -2 -0 0. C/ 89 t ti IC 34 1- 8- 00 DB 66 Av ve IL 15 20 20 0 A ai LI 57 08 08 FA la N 3 WI bl 25 LY e 0 MG DI /[address] CHATMAN PEREZ S SP DE 60 09 05 07 5. 16 PI 48 No Ac SM 50 -2 -0 00 C/ 76 t ti OP 50 7- 8- 0 DB 16 Av ve RE 81 20 20 A ai SS 50 07 08 FA la IN 0 WI bl LY e 0. 1 DI MG SC /M L DR JHOANA CHATMAN RA S Y DE 60 09 04 06 5. 17 PI 48 No Ac SM 50 -2 -1 00 C/ 76 t ti OP 50 7- 0- 0 DB 16 Av ve RE 81 20 20 A ai SS 50 07 08 FA la IN 0 WI bl LY e 0. 1 DI MG SC /M L DR JHOANA CHATMAN RA S Y DE 60 09 04 05 5. 17 PI 48 No Ac SM 50 -2 -0 00 C/ 76 t ti OP 50 7- 7- 0 DB 16 Av ve RE 81 20 20 A ai SS 50 07 08 FA la IN 0 WI bl LY e 0. 1 DI MG SC /M L DR ELY UG RA S Y 64 02 03 00 30 30 PI 50 No Ac 37 -2 -2 .0 C/ 28 t ti 60 2- 6- 00 DB 84 Av ve 72 20 20 A ai 63 08 08 FA la 0 WI bl LY e DI SC DR UG S DE 60 09 03 04 5. 17 PI 48 No Ac SM 50 -2 -2 00 C/ 76 t ti OP 50 7- 6- 0 DB 16 Av ve RE 81 20 20 A ai SS 50 07 08 FA la IN 0 WI bl LY e 0. 1 DI MG SC /M L DR JHOANA CHATMAN RA S Y CL 51 02 03 00 30 12 PI 50 No Ac OT 67 -2 -2 .0 C/ 28 t ti RI 21 2- 6- 00 DB 83 Av ve MA 27 20 20 A ai ZO 50 08 08 FA la LE 2 WI bl LY e 1% DI CR SC EA M DR LURDES Cat DE 60 09 03 03 5. 17 PI 48 No Ac SM 50 -2 -2 00 C/ 76 t ti OP 50 7- 4- 0 DB 16 Av ve RE 81 20 20 A ai SS 50 07 08 FA la IN 0 WI bl LY e 0. 1 DI MG [...] RECD : STATUS: BIGG FRAZIER NUM : [id number] ------- complet ------- ed ------- ------- ------- ------- ------- ------- ------- ------- ------- --- BOB complet Merritt MARIA DEL CARMEN Cat ed 28/F [facility] [id number] MARIO Wan Patient complet ed Age/Sex Locatio n Account Attendi ng Physici an RUN complet 013 TIME: ed 1210 RUN complet 013 DATE: ed 3 [facility] LAB *LIVE* PAGE 1 Signed complet 013 [...] Procedure DOS Code Location Performer Comment BLOOD 84007 [place] HASSAN COUNT [address] [facility] AUTO&AUTO CENTER CENTER DIFRNTL WBC C-REACTIV 19562 MO Cheng PROTEIN 0 [facility] [place] [address] [place], SURG 9 [facility] PATHOLOGY [facility] GROSS&[place] [address] PATHOLOGY [facility] ROSCOPIC EXAM CONIZATIO 43965 [facility], N CERVIX 9 AND JUANITA W/WO D&C ZONIA RPR ELTRD PSC EXC COLPOSCOP 26517 [facility], Y CERVIX 9 AND JUANITA UPPR/ADJC ZONIA NT VAGINA PSC [place] [address] ROSCOPIC EXAM CHOLESTER 96835 DHS/CO BATH CO OL 9 [facility] LE BLOOD BANK ACCT TOTAL GLUC BLD 73092 DHS/CO BATH CO GLUC MNTR 9 [facility] CLEARED BANK ACCT FDA SPEC HOME USE BLOOD 32182 DHS/CO BATH CO COUNT 9 [facility] HEMOGLOBI [facility] N BANK ACCT IADNA 30706 DHS/CO BATH CO CHLAMYDIA 9 [facility] TRACHOMAT BANK ACCT IS AMPLIFIED PROBE TQ IADNA 54777 DHS/CO BATH CO NEISSERIA 9 [facility] GONORRHOE BANK ACCT AE AMPLIFIED PROBE TQ CYTP [address] [facility] FRANK CARLOS, CERVICAL/ 9 [facility] REQ INTERP PHYSICIAN CYTP [address] FRANK CERV/VAG 9 MEDICAL MEDICAL AUTO THIN CTR CTR LAYER PREP MNL SCREEN URNLS DIP 41607 [place], [address] [place] [address] F STICK/TAB LET RGNT AUTO W/O MICROSCOP Y OPHTH 49273 [facility] 8 AND EDWARD T XM&EVAL [facility] COMPRHNSV VISION ESTAB PT CTR PLLC 1/> DETERMINA 08091 [facility] TION 8 AND EDANGELA T REFRACTIV PORTER E STATE [facility] CTR PLL[facility] HX&XM NML 64513 [facility] NB INFT 7 Y OF RHY INITIATIO IOWA N DX&TX PEDIA Encounters Encounter Start End Date Code Location Performer Type Date OFFICE 47071 [facility] LARRY CUNNINGHAM 0 0 PHYSICIAN YUMI VARGAS 20 S MINUTES CORPORATI ON II HOSPITAL [place] - 0 0 [facility] EM[facility]GENCY 65537 [facility] JACLYN, 0 0 TANESHA CORTEZ E DEPARTMEN EMERGENCY T VISIT PHYS INC MODERATE SEVERITY OFFICE 09423 [facility] 0 0 [facility] BRII T VISIT Y 15 MINUTES OFFICE 68234 LARRY PEREZ 9 9 AND JUANITA T VISIT ZONIA 10 PSC MINUTES [facility] - [address] [facility] OFFICE 62293 [facility], CONSULTAT 9 9 AND JUANITA BRAR NEW/ESTAB PSC PATIENT 15 MIN OFFICE 62971 [facility] CONSULTAT 9 9 AND JUANITA BRAR NEW/ESTAB PSC PATIENT 30 MIN [facility] 9 9 [facility] 86800 DHS/CO BATH CO OUTPATIEN 9 9 [facility] T VISIT [facility] 15 BANK ACCT MINUTES PERIODIC 71378 DHS/CO BATH CO PREVENTIV 9 9 [facility] E MED EST [facility] PATIENT BANK ACCT 18-39 YRS [facility] 9 9 MEDICAL OUTPATIEN [facility] T OFFICE 96882 BATH RACE, OUTPATIEN 9 9 [facility] VISIT 15 MINUTES OFFICE 95789 BATH RAYMOND OUTPATIEN 8 8 [place] [address] [facility]
--- OUTSIDE RECORDS SUMMARY | 2017-07-27 22:29 | External Medical Summary Rpt | CCD ---
Author Author , GARRETT TUCKER Address Unknown Phone [email or web address] Care Team Providers Care Tie Up Worker Name Role Phone [facility] Unavailable Unavailable CENTER, [facility] BRII LACEY Y, Unavailable Unavailable BRII LACEY MICHELLE, Unavailable Unavailable KYLE RAYMOND [facility], [facility] ROSA CARLOS, Unavailable Unavailable ROSA CARLOS RONDAL E, Unavailable Unavailable DIEGO ANAYA EDWARD T, Unavailable Unavailable MIKAEL PORTER [facility] EXPERIENCE [facility] Unavailable Unavailable DRUGS, [facility] ERICK, AFSHAN Lacy, RACE, Unavailable Unavailable JUANITA CHAUDHARY, Unavailable Unavailable JUANITA PARISH [facility], [facility] Unavailable Unavailable [facility], [facility] YUMI CUNNINGHAM, Unavailable Unavailable YUMI CUNNINGHAM STRIFLING RHIsidoro, Unavailable Unavailable STRIFLING RHMIGUEL DING, Unavailable Unavailable MIGUEL HINTON [facility] PEDIA, [facility] PEDIA Purpose Continuity of Care Document - 05-22-2007 through 2016 Problems Code Diagnosis DOS Provider Status 4476 UNSPECIFIED 10-13-2009 [facility] ARTERITIS PHYSICIANS [facility] II 7242 LUMBAGO 10-05-2009 [facility] 8472 LUMBAR 10-05-2009 [facility] N [facility] STRAIN [facility] E9278 OTH 10-05-2009 [facility] OVEREXERT&S N EMERGENCY TRENUOUS&RE PHYS INC PETITIVE MVMNTS/LOAD S V2542 SURVEILLANC 09-22-2009 [facility] E PREV PRSC INTRAUTERN CNTRACPT DEVC V700 ROUTINE 09-22-2009 [facility] GENERAL MEDICAL EXAM@HEALTH CARE FACL 66304 DYSPLASIA 12-08-2008 [facility] ZONIA UNSPECIFIED PSC 94128 MODERATE 11-17-2008 [facility] 2331 CARCINOMA 11-03-2008 [facility] 27378 PAP SMER 10-25-2008 [facility] CERV W/HI HEALTH [...] CONTRACEPT BANK ACCT METHOD 5990 URINARY 09-09-2008 [facility] TRACT INFECTION SITE NOT SPECIFIED 4619 ACUTE 06-08-2008 [facility] SINUSITIS, UNSPECIFIED 5589 OTH&UNSPEC 06-08-2008 [facility] NONINFECTIO US GASTROENTER ITIS&COLITI S 3671 MYOPIA 09-16-2007 [facility] V3000 SINGLE 05-22-2007 [facility] PEDIA W/O Medications Na ND Rx Da Fi Fi Am Da Di Ph RX Ph St me C No te ll ll ou ys ag ar # ys at rm s nt no ma ic us Or Da si cy ia de te s n re d NA 68 02 02 00 20 10 PI 60 CO Ac TX 46 -1 -2 .0 C/ 43 NN ti OX 20 8- 6- 00 DB 51 ve EN 19 20 20 A 1 FA 00 10 10 FA RR 50 5 WA AH 0 LY J MG DI TA SC BL ET DR LURDES S CY 59 02 02 00 15 5 PI 60 CO Ac CL 74 -1 -2 .0 C/ 43 NN ti OB 60 8- 6- 00 DB 44 ve EN 21 20 20 A 7 FA ZA 10 10 10 FA RR TX 6 WA AH IN LY J E 5 DI MG SC TA DR CHANTAL CHATMAN ET S LO 51 01 01 00 60 30 PI 60 HU Ac RA 67 -1 -2 .0 C/ 40 GH ti TA 22 1- 8- 00 DB 48 ES ve DI 07 20 20 A 0 NE 30 10 10 FA PA 5 8 WA TR LY IC MG K /5 DI D SC ML DR SILVANA CHATMAN RU S P DE 60 04 11 04 5. 17 PI 60 CA Ac SM 50 -2 -1 00 C/ 20 RP ti OP 50 7- 9- 0 DB 55 EN ve RE 81 20 20 A 4 TE SS 50 09 09 FA R IN 0 WA WA LY CH 0. EL 1 DI LE MG SC /M L UG RA S Y DE 60 04 11 03 5. 17 PI 60 CA Ac SM 50 -2 -0 00 C/ 20 RP ti OP 50 7- 5- 0 DB 55 EN ve RE 81 20 20 A 4 TE SS 50 09 09 FA R IN 0 WA WA LY CH 0. EL 1 DI LE MG SC /M L [facility] RA S Y DE 60 04 10 02 5. 17 PI 60 CA Ac SM 50 -2 -2 00 C/ 20 RP ti OP 50 7- 2- 0 DB 55 EN ve RE 81 20 20 A 4 TE SS 50 09 09 FA R IN 0 WA WA LY CH 0. EL 1 DI LE MG SC /M L [facility] RA S Y DE 60 04 10 01 5. 17 PI 60 CA Ac SM 50 -2 -0 00 C/ 20 RP ti OP 50 7- 8- 0 DB 55 EN ve RE 81 20 20 A 4 TE SS 50 09 09 FA R IN 0 WA WA LY CH 0. EL 1 DI LE MG SC /M L [facility] RA S Y DE 60 04 09 00 5. 17 PI 60 CA Ac SM 50 -2 -1 00 C/ 20 RP ti OP 50 7- 0- 0 DB 55 EN ve RE 81 20 20 A 4 TE SS 50 09 09 FA R IN 0 WA WA LY CH 0. EL 1 DI LE MG SC /M L [facility] RA S Y DE 60 04 08 05 5. 17 PI 60 SM Ac SM 50 -2 -2 00 C/ 20 IT ti OP 50 7- 7- 0 DB 50 H ve RE 81 20 20 A 4 II SS 50 09 09 FA I IN 0 WA WI LY LB 0. UR 1 DI N MG SC J /M L [facility] RA S Y DE 60 04 07 04 5. 17 PI 60 SM Ac SM 50 -2 -3 00 C/ 20 IT ti OP 50 7- 0- 0 DB 50 H ve RE 81 20 20 A 4 II SS 50 09 09 FA I IN 0 WA WI LY LB 0. UR 1 DI N MG SC J /M L [facility] RA S Y DE 60 04 07 03 5. 17 PI 60 SM Ac SM 50 -2 -1 00 C/ 20 IT ti OP 50 7- 6- 0 DB 50 H ve RE 81 20 20 A 4 II SS 50 09 09 FA I IN 0 WA WI LY LB 0. UR 1 DI N MG SC J /M L DR ELY UG RA S Y DE 60 04 06 02 5. 17 PI 60 SM Ac SM 50 -2 -1 00 C/ 20 IT ti OP 50 7- 8- 0 DB 50 H ve RE 81 20 20 A 4 II SS 50 09 09 FA I IN 0 WA WI LY LB 0. UR 1 DI N MG SC J /M L DR JHOANA CHATMAN RA S Y DE 60 04 05 01 5. 17 PI 60 SM Ac SM 50 -2 -2 00 C/ 20 IT ti OP 50 7- 1- 0 DB 50 H ve RE 81 20 20 A 4 II SS 50 09 09 FA I IN 0 WA WI LY LB 0. UR 1 DI N MG SC J /M L DR JHOANA CHATMAN RA S Y DE 60 04 05 00 5. 17 PI 60 SM Ac SM 50 -2 -0 00 C/ 20 IT ti OP 50 7- 7- 0 DB 50 H ve RE 81 20 20 A 4 II SS 50 09 09 FA I IN 0 WA WI LY LB 0. UR 1 DI N MG SC J /M L DR ELY RA S Y DE 60 12 04 05 5. 17 PI 60 CA Ac SM 50 -3 -2 00 C/ 10 RP ti OP 50 0- 3- 0 DB 87 EN ve RE 81 20 20 A 5 TE SS 50 08 09 FA R IN 0 WA WA LY CH 0. EL 1 DI LE MG SC /M L DR ELY RA S Y DE 60 12 03 04 5. 17 PI 60 CA Ac SM 50 -3 -2 00 C/ 10 RP ti OP 50 0- 6- 0 DB 87 EN ve RE 81 20 20 A 5 TE SS 50 08 09 FA R IN 0 WA WA LY CH 0. EL 1 DI LE MG SC /M L DR ELY RA S Y DE 60 12 03 03 5. 17 PI 60 CA Ac SM 50 -3 -1 00 C/ 10 RP ti OP 50 0- 2- 0 DB 87 EN ve RE 81 20 20 A 5 TE SS 50 08 09 FA R IN 0 WA WA LY CH 0. EL 1 DI LE MG SC /M L DR ELY RA S Y DE 60 12 02 02 5. 17 PI 60 CA Ac SM 50 -3 -2 00 C/ 10 RP ti OP 50 0- 6- 0 DB 87 EN ve RE 81 20 20 A 5 TE SS 50 08 09 FA R IN 0 WA WA LY CH 0. EL 1 DI LE MG SC /M L UG RA S Y DE 60 12 02 01 5. 17 PI 60 CA Ac SM 50 -3 -1 00 C/ 10 RP ti OP 50 0- 2- 0 DB 87 EN ve RE 81 20 20 A 5 TE SS 50 08 09 FA R IN 0 WA WA LY CH 0. EL 1 DI LE MG SC /M L DR ELY RA S Y 00 01 01 00 9. 3 PI 60 RA Ac 60 -2 -3 00 C/ 12 CE ti 35 3- 0- 0 DB 92 ve 14 20 20 A 0 DA 13 09 09 FA 2 WA D LY F DI SC DR UG S NI 00 01 01 00 20 10 PI 60 RA Ac TR 18 -2 -3 .0 C/ 12 CE ti OF 50 3- 0- 00 DB 92 ve UR 12 20 20 A 1 DA AN 21 09 09 FA TO 0 WA D IN LY F MO DI NO SC -M CR DR UG 10 S 0 MG DE 60 12 01 00 5. 17 PI 60 CA Ac SM 50 -3 -1 00 C/ 10 RP ti OP 50 0- 5- 0 DB 87 EN ve RE 81 20 20 A 5 TE SS 50 08 09 FA R IN 0 WA WA LY CH 0. EL 1 DI LE MG SC /M L [facility] RA S Y DE 60 10 01 03 5. 17 PI 60 SM Ac SM 50 -0 -0 00 C/ 03 IT ti OP 50 7- 1- 0 DB 67 H ve RE 81 20 20 A 5 II SS 50 08 09 FA I IN 0 WA WI LY LB 0. UR 1 DI N MG SC J /M L [facility] RA S Y DE 60 10 12 03 5. 17 PI 60 SM Ac SM 50 -0 -1 00 C/ 03 IT ti OP 50 7- 8- 0 DB 67 H ve RE 81 20 20 A 5 II SS 50 08 08 FA I IN 0 WA WI LY LB 0. UR 1 DI N MG SC J /M L UG RA S Y DE 60 10 12 02 5. 17 PI 60 SM Ac SM 50 -0 -0 00 C/ 03 IT ti OP 50 7- 4- 0 DB 67 H ve RE 81 20 20 A 5 II SS 50 08 08 FA I IN 0 WA WI LY LB 0. UR 1 DI N MG SC J /M L DR JHOANA CHATMAN RA S Y 64 11 11 00 30 10 PI 60 BROOKE Ac 37 -1 -2 .0 C/ 06 RR ti 60 1- 0- 00 DB 83 OW ve 72 20 20 A 0 DA 63 08 08 FA LE 0 WA -C LY OX DI PE SC TE R DR Ana CHATMAN S CE 68 11 11 00 60 10 PI 60 BROOKE Ac FD 18 -1 -2 .0 C/ 06 RR ti IN 00 1- 0- 00 DB 82 OW ve IR 72 20 20 A 9 DA 32 08 08 FA LE 25 0 WA -C 0 LY OX MG /5 DI PE SC TE ML R DR Ana CHATMAN SP S TX 68 10 11 00 20 5 PI 60 CA Ac OM 38 -2 -0 .0 C/ 04 RP ti ET 20 2- 7- 00 DB 92 EN ve MILNER 04 20 20 A 7 TE ZI 11 08 08 FA R NE 0 WA WA LY CH 25 EL DI LE MG SC TA DR CHANTAL CHATMAN ET S AZ 00 10 11 00 6. 5 PI 60 CA Ac IT 78 -2 -0 00 C/ 04 RP ti HR 11 2- 7- 0 DB 92 EN ve OM 49 20 20 A 8 TE YC 66 08 08 FA R IN 8 WA WA LY CH 25 EL 0 DI LE MG SC TA DR CHANTAL CHATMAN ET S DE 60 10 11 01 5. 17 PI 60 SM Ac SM 50 -0 -0 00 C/ 03 IT ti OP 50 7- 7- 0 DB 67 H ve RE 81 20 20 A 5 II SS 50 08 08 FA I IN 0 WA WI LY LB 0. UR 1 DI N MG SC J /M L DR JHOANA CHATMAN RA S Y AZ 59 10 10 00 15 5 PI 60 BROOKE Ac IT 76 -0 -2 .0 C/ 03 RR ti HR 23 7- 3- 00 DB 66 OW ve OM 11 20 20 A 5 DA YC 00 08 08 FA LE IN 1 WA -C LY OX 10 0 DI PE MG SC TE /[address] Ana CHATMAN S PEREZ SP 64 10 10 00 30 10 PI 60 BROOKE Ac 37 -0 -2 .0 C/ 03 RR ti 60 7- 3- 00 DB 66 OW ve 72 20 20 A 3 DA 63 08 08 FA LE 0 WA -C LY OX DI PE SC TE R DR Ana CHATMAN S HY 24 10 10 00 29 7 PI [address] 38 -0 -2 .0 C/ 03 RR ti OC 50 7- 3- 00 DB 65 OW ve OR 19 20 20 A 7 DA TI 00 08 08 FA LE SO 3 WA -C NE LY OX 0. DI PE 5% SC TE R CR DR Ana HOUSE UG M S DE 60 10 10 00 5. 17 PI 60 SM Ac SM 50 -0 -2 00 C/ 03 IT ti OP 50 7- 3- 0 DB 67 H ve RE 81 20 20 A 5 II SS 50 08 08 FA I IN 0 WA WI LY LB 0. UR 1 DI N MG SC J /M L DR ELY RA S Y DE 60 09 09 02 5. 16 PI 51 SM Ac SM 50 -2 -2 00 C/ 85 IT ti OP 50 7- 6- 0 DB 17 H ve RE 81 20 20 A II SS 50 07 08 FA I IN 0 WA WI LY LB 0. UR 1 DI N MG SC J /M L DR ELY RA S Y DE 60 09 09 01 5. 16 PI 51 No Ac SM 50 -2 -1 00 C/ 85 t ti OP 50 7- 1- 0 DB 17 Av ve RE 81 20 20 A ai SS 50 07 08 FA la IN 0 WA bl LY e 0. 1 DI MG SC /M L DR ELY RA S Y DE 60 09 08 00 5. 16 PI 51 No Ac SM 50 -2 -1 00 C/ 85 t ti OP 50 7- 4- 0 DB 17 Av ve RE 81 20 20 A ai SS 50 07 08 FA la IN 0 WA bl LY e 0. 1 DI MG SC /M L DR ELY RA S Y DE 60 09 08 11 5. 16 PI 48 No Ac SM 50 -2 -0 00 C/ 76 t ti OP 50 7- 1- 0 DB 16 Av ve RE 81 20 20 A ai SS 50 07 08 FA la IN 0 WA bl LY e 0. 1 DI MG SC /M L DR ELY RA S Y DE 60 09 07 10 5. 16 PI 48 No Ac SM 50 -2 -0 00 C/ 76 t ti OP 50 7- 3- 0 DB 16 Av ve RE 81 20 20 A ai SS 50 07 08 FA la IN 0 WA bl LY e 0. 1 DI MG SC /M L DR ELY RA S Y DE 60 09 05 08 5. 16 PI 48 No Ac SM 50 -2 -2 00 C/ 76 t ti OP 50 7- 2- 0 DB 16 Av ve RE 81 20 20 A ai SS 50 07 08 FA la IN 0 WA bl LY e 0. 1 DI MG SC /M L DR JHOANA CHATMAN RA S Y AM 00 04 05 00 10 10 PI 50 No Ac OX 09 -2 -0 0. C/ 89 t ti IC 34 1- 8- 00 DB 66 Av ve IL 15 20 20 0 A ai LI 57 08 08 FA la N 3 WA bl 25 LY e 0 MG DI /[address] CHATMAN PEREZ S SP NE 24 04 05 00 10 7 PI 50 No Ac OM 20 -2 -0 .0 C/ 91 t ti YC 80 2- 8- 00 DB 96 Av ve IN 63 20 20 A ai -P 11 08 08 FA la OL 0 WA bl YM LY e YX IN DI -H SC C EA DR Tee CHATMAN SO S LN DE 60 09 05 07 5. 16 PI 48 No Ac SM 50 -2 -0 00 C/ 76 t ti OP 50 7- 8- 0 DB 16 Av ve RE 81 20 20 A ai SS 50 07 08 FA la IN 0 WA bl LY e 0. 1 DI MG SC /M L DR JHOANA CHATMAN RA S Y DE 60 09 04 06 5. 17 PI 48 No Ac SM 50 -2 -1 00 C/ 76 t ti OP 50 7- 0- 0 DB 16 Av ve RE 81 20 20 A ai SS 50 07 08 FA la IN 0 WA bl LY e 0. 1 DI MG SC /M L DR JHOANA CHATMAN RA S Y DE 60 09 04 05 5. 17 PI 48 No Ac SM 50 -2 -0 00 C/ 76 t ti OP 50 7- 7- 0 DB 16 Av ve RE 81 20 20 A ai SS 50 07 08 FA la IN 0 WA bl LY e 0. 1 DI MG SC /M L DR JHOANA CHATMAN RA S Y 64 02 03 00 30 30 PI 50 No Ac 37 -2 -2 .0 C/ 28 t ti 60 2- 6- 00 DB 84 Av ve 72 20 20 A ai 63 08 08 FA la 0 WA bl LY e DI SC DR CHATMAN S CL 51 02 03 00 30 12 PI 50 No Ac OT 67 -2 -2 .0 C/ 28 t ti RI 21 2- 6- 00 DB 83 Av ve MA 27 20 20 A ai ZO 50 08 08 FA la LE 2 WA bl LY e 1% DI CR SC EA M DR CHATMAN S DE 60 09 03 04 5. 17 PI 48 No Ac SM 50 -2 -2 00 C/ 76 t ti OP 50 7- 6- 0 DB 16 Av ve RE 81 20 20 A ai SS 50 07 08 FA la IN 0 WA bl LY e 0. 1 DI MG SC /M L DR JHOANA CHATMAN RA S Y DE 60 09 03 03 5. 17 PI 48 No Ac SM 50 -2 -2 00 C/ 76 t ti OP 50 7- 4- 0 DB 16 Av ve RE 81 20 20 A ai SS 50 07 08 FA la IN 0 WA bl LY e 0. 1 DI MG SC /M L DR JHOANA CHATMAN RA S Y Procedures Procedure DOS Code Location Performer Comment BLOOD 07517 MO MO COUNT 0 [facility] CENTER DIFRNTL WBC C-REACTIV 39335 [place] MO E PROTEIN 0 [facility] [place] [address] [facility] 9 [facility] PATHOLOGY CLINIC [facility] GROSS&[place] [address] ROSCOPIC EXAM CONIZATIO 92159 МАРИНА PARISH, N CERVIX 9 AND JUANITA W/WO D&C ZONIA RPR ELTRD PSC EXC COLPOSCOP 58862 МАРИНА PARISH, Y CERVIX 9 AND JUANITA UPPR/ADJC ZONIA NT VAGINA [place] [address] ROSCOPIC EXAM CHOLESTER 59773 [facility] BATH CO OL 9 [facility] SERUM/[facility] LE BLOOD BANK ACCT TOTAL GLUC BLD 03690 [facility]/CO BATH CO GLUC MNTR 9 [facility] DEV [facility] CLEARED BANK ACCT FDA SPEC HOME USE BLOOD 60403 [facility]/CO BATH CO COUNT 9 [facility] HEMOGLOBI [facility] N BANK ACCT IADNA 38899 DHS/CO BATH CO CHLAMYDIA 9 [facility] TRACHOMAT BANK ACCT IS AMPLIFIED PROBE TQ IADNA 63174 DHS/CO BATH CO NEISSERIA 9 [facility] GONORRHOE BANK ACCT AE AMPLIFIED PROBE TQ CYTP 93307 [facility], CERVICAL/ 9 [facility] REQ INTERP PHYSICIAN CYTP [address] [facility] CERV/VAG 9 MEDICAL MEDICAL AUTO THIN CTR CTR LAYER PREP MNL SCREEN URNLS DIP 77707 [facility], 9 [facility] STICK/TAB LET RGNT AUTO W/O MICROSCOP Y OPHTH 46561 [facility] 8 AND EDWARD T XM&EVAL [facility] COMPRHNSV [facility]ISION ESTAB PT CTR PLLC 1/> DETERMINA 35756 [facility] TION 8 AND EDWARD T REFRACTIV [facility] E [facility] HX&XM NML 78136 [facility] NB INFT 7 Y [facility]HY [facility] DX&TX PEDIA Encounters Encounter Start End Date Code Location Performer Type Date HOSPITAL [place] - 0 0 [facility] OFFICE 25934 [facility] 0 0 PHYSICIAN YUMI VARGAS 20 S MINUTES CORPORATI ON II EMERGENCY 95745 [facility], 0 0 [facility] VISIT PHYS INC MODERATE SEVERITY OFFICE 36923 [facility] 0 [facility] T VISIT Y 15 MINUTES OFFICE 99323 LARRY PEREZ 9 9 AND JUANITA BRAR 10 PSC MINUTES [facility] 9 9 [facility] OFFICE 48167 BALBINA PEREZ 9 9 AND JUANITA BRAR NEW/ESTAB PSC PATIENT 15 MIN [facility] - 9 9 [facility] OFFICE 09756 BALBINA PEREZ 9 9 AND JUANITA BRAR NEW/ESTAB PSC PATIENT 30 MIN OFFICE 18177 DHS/CO BATH CO OUTPATIEN 9 9 HEALTH HEALTH T VISIT [facility] 15 BANK ACCT MINUTES PERIODIC 37188 [facility]/CO BATH CO PREVENTIV 9 9 [facility] E MED EST [facility] PATIENT BANK ACCT 18-39 YRS [facility] - 9 9 MEDICAL OUTPATIEN CTR T OFFICE 48332 [facility], OUTPATIEN 9 9 [facility] T VISIT 15 MINUTES OFFICE 45839 [facility]ATH RAYMOND OUTPATIEN 8 8 [facility] [place] [address] [facility]
--- OUTSIDE RECORDS SUMMARY | 2017-07-27 22:29 | External Medical Summary Rpt ---
Author Author [employer], [employer] Address Unknown Phone Unavailable Results Pap Smear Report Observa Value Referen Units Interpr Notes Date tion ce etation Range RUN No No No No Jun 07 DATE: informa informa informa informa 2012 tion in tion in tion in tion in 3 source source source source data data data data [facility] LAB *LIVE* PAGE 1RUN TIME: 1210--- ------- ------- ------- ------- ------- ------- ------- ------- ------- ------- ------- Patient Age/Sex Locatio n Account Attendi ng Physici an----- ------- ------- ------- ------- ------- ------- ------- ------- ------- ------- -----[facility] [id number] MARIO Wan----- ------- ------- ------- ------- ------- ------- ------- ------- ------- ------- -----SP EC : [id number] RECD : 3 STATUS: BIGG FRAZIER NUM : [id number] OLL : 3- SUBM DR: Danielle Davalos ES:A. VAGINAL /CERVIC AL/ENDO CERVICA L SCREENI NG AUTO THIN LAYER PREPCLI NICALHI STORYPA PCLINIC AL HISTORY LMP: 3 MONTHS AGOMedi abby Therapy : IUDAddi tional Info: Previou s pap 9 DDTG-CE HG (SCR).A DEQUACY OF THE SPECIME N:Satis factory for evaluat ionEndo cervica l or metapla stic cells present GENERAL CATEGOR IZATION :Negati ve for intraep ithelia l lesion or maligna ncyShif t in obi suggest nicole of bacteri al vaginos isAddit ional Comment s:Jade d ___(sig nature on file)__ __ Alex Kyle MD 3 1210--- ------- ------- ------- ------- ------- ------- ------- ------- ------- ------- -------
--- OUTSIDE RECORDS SUMMARY | 2017-07-27 22:29 | External Medical Summary Rpt | CCD ---
Demographics Preferred Language Telugu Marital Status Unknown Jew Affiliation Unknown Race Unknown Ethnic Group Unknown Author Author , GARRETT TUCKER Address Unknown Phone [email or web address] Immunization No patient found.
--- OUTSIDE RECORDS SUMMARY | 2017-07-27 22:29 | External Medical Summary Rpt ---
Author Author [employer]TT [employer], GAR[employer]TT [employer] Organization [employer] Address Unknown Phone Unavailable Results Pap Smear Report Observa Value Referen Units Interpr Notes Date tion ce etation Range RUN No No No No Jun 07 DATE: informa informa informa informa 2012 tion in tion in tion in tion in 3 source source source source data data data data [facility] LAB *LIVE* PAGE 1RUN TIME: 1210--- ------- ------- ------- ------- ------- ------- ------- ------- ------- ------- ------- Patient Age/Sex Locatio n Account Attendi ng Physici an----- ------- ------- ------- ------- ------- ------- ------- ------- ------- ------- -----[facility] [id number] MARIO Wan----- ------- ------- ------- ------- ------- ------- ------- ------- ------- ------- -----SP EC : [id number] RECD : 3 STATUS: BIGG FRAZIER NUM : [id number] OLL : 3- SUBM DR: Danielle Davalos [...] of bacteri al vaginos isAddit ional Comment s:Ajde d ___(sig nature on file)__ __ Alex Kyle MD 3 1210--- ------- ------- ------- ------- ------- ------- ------- ------- ------- ------- -------
--- OUTSIDE RECORDS SUMMARY | 2017-07-27 22:29 | External Medical Summary Rpt | CCD ---
Author Author , GARRETT TUCKER Address Unknown Phone [email or web address] Care Team Providers Care Inclusion Special Educator Name Role Phone [facility] Unavailable Unavailable CENTER, [facility] BRII LACEY Y, Unavailable Unavailable BRII LACEY MICHELLE, Unavailable Unavailable KYLE RAYMOND [facility], [facility] ROSA CARLOS, Unavailable Unavailable ROSA CARLOS RONDAL E, Unavailable Unavailable DIEGO ANAYA EDWARD T, Unavailable Unavailable MIKAEL PORTER PIC/REGULATORY ADMINISTRATOR [facility] Unavailable Unavailable DRUGS, P[facility]REGULATORY ADMINISTR[facility] ERICK, AFSHAN Lacy, RACE, Unavailable Unavailable JUANITA CHAUDHARY, Unavailable Unavailable JUANITA PARISH [facility], [facility] Unavailable Unavailable CTR, [facility] YUMI CUNNINGHAM, Unavailable Unavailable YUMI CUNNINGHAM STRIFLING RHIsidoro, Unavailable Unavailable STRIFLING RHMIGUEL DING, Unavailable Unavailable MIGUEL HINTON [facility] PEDIA, [facility] PEDIA Purpose Continuity of Care Document - 05-22-2007 through 2016 Problems Code Diagnosis DOS Provider Status 4476 UNSPECIFIED 10-13-2009 [facility] ARTERITIS [facility]YSICIANS [facility] II 7242 LUMBAGO 10-05-2009 [facility] 8472 LUMBAR 10-05-2009 [facility] SPRAIN AND N EMERGENCY STRAIN [facility]YS INC E9278 OTH 10-05-2009 [facility] OVEREXERT&S N EMERGENCY TRENUOUS&RE PHYS INC PETITIVE MVMNTS/LOAD S V2542 SURVEILLANC 09-22-2009 [facility] E PREV PRSC INTRAUTERN CNTRACPT DEVC V700 ROUTINE 09-22-2009 [facility] GENERAL MEDICAL EXAM@HEALTH CARE FACL 66402 DYSPLASIA 12-08-2008 [facility] ZONIA UNSPECIFIED PSC 95676 MODERATE 11-17-2008 [facility] 2331 CARCINOMA 11-03-2008 [facility] 96815 PAP SMER 10-25-2008 DHS/CO CERV W/HI HEALTH [...] CONTRACEPT BANK ACCT METHOD 5990 URINARY 09-09-2008 [facility] TRACT INFECTION SITE NOT SPECIFIED 4619 ACUTE 06-08-2008 [facility] SINUSITIS, UNSPECIFIED 5589 OTH&UNSPEC 06-08-2008 [facility] NONINFECTIO US GASTROENTER ITIS&COLITI S 3671 MYOPIA 09-16-2007 [facility] V3000 SINGLE 05-22-2007 [facility] PEDIA W/O Medications Na ND Rx Da Fi Fi Am Da Di Ph RX Ph St me C No te ll ll ou ys ag ar # ys at rm s nt no ma ic us Or Da si cy ia de te s n re d NA 68 02 02 00 20 10 PI 60 CO Ac IL 46 -1 -2 .0 C/ 43 NN ti OX 20 8- 6- 00 DB 51 ve EN 19 20 20 A 1 FA 00 10 10 FA RR 50 5 VT AH 0 LY J MG DI TA SC BL ET DR LURDES S CY 59 02 02 00 15 5 PI 60 CO Ac CL 74 -1 -2 .0 C/ 43 NN ti OB 60 8- 6- 00 DB 44 ve EN 21 20 20 A 7 FA ZA 10 10 10 FA RR IL 6 VT AH IN LY J E 5 DI MG SC TA DR CHANTAL CHATMAN ET S LO 51 01 01 00 60 30 PI 60 HU Ac RA 67 -1 -2 .0 C/ 40 GH ti TA 22 1- 8- 00 DB 48 ES ve DI 07 20 20 A 0 NE 30 10 10 FA PA 5 8 VT TR LY IC MG K /5 DI D SC ML DR SILVANA CHATMAN RU S P DE 60 04 11 04 5. 17 PI 60 CA Ac SM 50 -2 -1 00 C/ 20 RP ti OP 50 7- 9- 0 DB 55 EN ve RE 81 20 20 A 4 TE SS 50 09 09 FA R IN 0 VT VT LY CH 0. EL 1 DI LE MG SC /M L UG RA S Y DE 60 04 11 03 5. 17 PI 60 CA Ac SM 50 -2 -0 00 C/ 20 RP ti OP 50 7- 5- 0 DB 55 EN ve RE 81 20 20 A 4 TE SS 50 09 09 FA R IN 0 VT VT LY CH 0. EL 1 DI LE MG SC /M L [facility] RA S Y DE 60 04 10 02 5. 17 PI 60 CA Ac SM 50 -2 -2 00 C/ 20 RP ti OP 50 7- 2- 0 DB 55 EN ve RE 81 20 20 A 4 TE SS 50 09 09 FA R IN 0 VT VT LY CH 0. EL 1 DI LE MG SC /M L [facility] RA S Y DE 60 04 10 01 5. 17 PI 60 CA Ac SM 50 -2 -0 00 C/ 20 RP ti OP 50 7- 8- 0 DB 55 EN ve RE 81 20 20 A 4 TE SS 50 09 09 FA R IN 0 VT VT LY CH 0. EL 1 DI LE MG SC /M L [facility] RA S Y DE 60 04 09 00 5. 17 PI 60 CA Ac SM 50 -2 -1 00 C/ 20 RP ti OP 50 7- 0- 0 DB 55 EN ve RE 81 20 20 A 4 TE SS 50 09 09 FA R IN 0 VT VT LY CH 0. EL 1 DI LE MG SC /M L [facility] RA S Y DE 60 04 08 05 5. 17 PI 60 SM Ac SM 50 -2 -2 00 C/ 20 IT ti OP 50 7- 7- 0 DB 50 H ve RE 81 20 20 A 4 II SS 50 09 09 FA I IN 0 VT WI LY LB 0. UR 1 DI N MG SC J /M L [facility] RA S Y DE 60 04 07 04 5. 17 PI 60 SM Ac SM 50 -2 -3 00 C/ 20 IT ti OP 50 7- 0- 0 DB 50 H ve RE 81 20 20 A 4 II SS 50 09 09 FA I IN 0 VT WI LY LB 0. UR 1 DI N MG SC J /M L [facility] RA S Y DE 60 04 07 03 5. 17 PI 60 SM Ac SM 50 -2 -1 00 C/ 20 IT ti OP 50 7- 6- 0 DB 50 H ve RE 81 20 20 A 4 II SS 50 09 09 FA I IN 0 VT WI LY LB 0. UR 1 DI N MG SC J /M L DR ELY UG RA S Y DE 60 04 06 02 5. 17 PI 60 SM Ac SM 50 -2 -1 00 C/ 20 IT ti OP 50 7- 8- 0 DB 50 H ve RE 81 20 20 A 4 II SS 50 09 09 FA I IN 0 VT WI LY LB 0. UR 1 DI N MG SC J /M L DR JHOANA CHATMAN RA S Y DE 60 04 05 01 5. 17 PI 60 SM Ac SM 50 -2 -2 00 C/ 20 IT ti OP 50 7- 1- 0 DB 50 H ve RE 81 20 20 A 4 II SS 50 09 09 FA I IN 0 VT WI LY LB 0. UR 1 DI N MG SC J /M L DR JHOANA CHATMAN RA S Y DE 60 04 05 00 5. 17 PI 60 SM Ac SM 50 -2 -0 00 C/ 20 IT ti OP 50 7- 7- 0 DB 50 H ve RE 81 20 20 A 4 II SS 50 09 09 FA I IN 0 VT WI LY LB 0. UR 1 DI N MG SC J /M L DR ELY RA S Y DE 60 12 04 05 5. 17 PI 60 CA Ac SM 50 -3 -2 00 C/ 10 RP ti OP 50 0- 3- 0 DB 87 EN ve RE 81 20 20 A 5 TE SS 50 08 09 FA R IN 0 VT VT LY CH 0. EL 1 DI LE MG SC /M L DR ELY RA S Y DE 60 12 03 04 5. 17 PI 60 CA Ac SM 50 -3 -2 00 C/ 10 RP ti OP 50 0- 6- 0 DB 87 EN ve RE 81 20 20 A 5 TE SS 50 08 09 FA R IN 0 VT VT LY CH 0. EL 1 DI LE MG SC /M L DR ELY RA S Y DE 60 12 03 03 5. 17 PI 60 CA Ac SM 50 -3 -1 00 C/ 10 RP ti OP 50 0- 2- 0 DB 87 EN ve RE 81 20 20 A 5 TE SS 50 08 09 FA R IN 0 VT VT LY CH 0. EL 1 DI LE MG SC /M L DR ELY RA S Y DE 60 12 02 02 5. 17 PI 60 CA Ac SM 50 -3 -2 00 C/ 10 RP ti OP 50 0- 6- 0 DB 87 EN ve RE 81 20 20 A 5 TE SS 50 08 09 FA R IN 0 VT VT LY CH 0. EL 1 DI LE MG SC /M L UG RA S Y DE 60 12 02 01 5. 17 PI 60 CA Ac SM 50 -3 -1 00 C/ 10 RP ti OP 50 0- 2- 0 DB 87 EN ve RE 81 20 20 A 5 TE SS 50 08 09 FA R IN 0 VT VT LY CH 0. EL 1 DI LE MG SC /M L DR ELY RA S Y 00 01 01 00 9. 3 PI 60 RA Ac 60 -2 -3 00 C/ 12 CE ti 35 3- 0- 0 DB 92 ve 14 20 20 A 0 DA 13 09 09 FA 2 VT D LY F DI SC DR UG S NI 00 01 01 00 20 10 PI 60 RA Ac TR 18 -2 -3 .0 C/ 12 CE ti OF 50 3- 0- 00 DB 92 ve UR 12 20 20 A 1 DA AN 21 09 09 FA TO 0 VT D IN LY F MO DI NO SC -M CR DR UG 10 S 0 MG DE 60 12 01 00 5. 17 PI 60 CA Ac SM 50 -3 -1 00 C/ 10 RP ti OP 50 0- 5- 0 DB 87 EN ve RE 81 20 20 A 5 TE SS 50 08 09 FA R IN 0 VT VT LY CH 0. EL 1 DI LE MG SC /M L [facility] RA S Y DE 60 10 01 03 5. 17 PI 60 SM Ac SM 50 -0 -0 00 C/ 03 IT ti OP 50 7- 1- 0 DB 67 H ve RE 81 20 20 A 5 II SS 50 08 09 FA I IN 0 VT WI LY LB 0. UR 1 DI N MG SC J /M L [facility] RA S Y DE 60 10 12 03 5. 17 PI 60 SM Ac SM 50 -0 -1 00 C/ 03 IT ti OP 50 7- 8- 0 DB 67 H ve RE 81 20 20 A 5 II SS 50 08 08 FA I IN 0 VT WI LY LB 0. UR 1 DI N MG SC J /M L UG RA S Y DE 60 10 12 02 5. 17 PI 60 SM Ac SM 50 -0 -0 00 C/ 03 IT ti OP 50 7- 4- 0 DB 67 H ve RE 81 20 20 A 5 II SS 50 08 08 FA I IN 0 VT WI LY LB 0. UR 1 DI N MG SC J /M L DR JHOANA CHATMAN RA S Y 64 11 11 00 30 10 PI 60 BROOKE Ac 37 -1 -2 .0 C/ 06 RR ti 60 1- 0- 00 DB 83 OW ve 72 20 20 A 0 DA 63 08 08 FA LE 0 VT -C LY OX DI PE SC TE R DR Ana CHATMAN S CE 68 11 11 00 60 10 PI 60 BROOKE Ac FD 18 -1 -2 .0 C/ 06 RR ti IN 00 1- 0- 00 DB 82 OW ve IR 72 20 20 A 9 DA 32 08 08 FA LE 25 0 VT -C 0 LY OX MG /5 DI PE SC TE ML R DR Ana CHATMAN SP S IL 68 10 11 00 20 5 PI 60 CA Ac OM 38 -2 -0 .0 C/ 04 RP ti ET 20 2- 7- 00 DB 92 EN ve MILNER 04 20 20 A 7 TE ZI 11 08 08 FA R NE 0 VT VT LY CH 25 EL DI LE MG SC TA DR CHANTAL CHATMAN ET S AZ 00 10 11 00 6. 5 PI 60 CA Ac IT 78 -2 -0 00 C/ 04 RP ti HR 11 2- 7- 0 DB 92 EN ve OM 49 20 20 A 8 TE YC 66 08 08 FA R IN 8 VT VT LY CH 25 EL 0 DI LE MG SC TA DR CHANTAL CHATMAN ET S DE 60 10 11 01 5. 17 PI 60 SM Ac SM 50 -0 -0 00 C/ 03 IT ti OP 50 7- 7- 0 DB 67 H ve RE 81 20 20 A 5 II SS 50 08 08 FA I IN 0 VT WI LY LB 0. UR 1 DI N MG SC J /M L DR JHOANA CHATMAN RA S Y AZ 59 10 10 00 15 5 PI 60 BROOKE Ac IT 76 -0 -2 .0 C/ 03 RR ti HR 23 7- 3- 00 DB 66 OW ve OM 11 20 20 A 5 DA YC 00 08 08 FA LE IN 1 VT -C LY OX 10 0 DI PE MG SC TE /[address] Ana CHATMAN S PEREZ SP 64 10 10 00 30 10 PI 60 BROOKE Ac 37 -0 -2 .0 C/ 03 RR ti 60 7- 3- 00 DB 66 OW ve 72 20 20 A 3 DA 63 08 08 FA LE 0 VT -C LY OX DI PE SC TE R DR Ana CHATMAN S HY 24 10 10 00 29 7 PI [address] 38 -0 -2 .0 C/ 03 RR ti OC 50 7- 3- 00 DB 65 OW ve OR 19 20 20 A 7 DA TI 00 08 08 FA LE SO 3 VT -C NE LY OX 0. DI PE 5% SC TE R CR DR Ana HOUSE UG M S DE 60 10 10 00 5. 17 PI 60 SM Ac SM 50 -0 -2 00 C/ 03 IT ti OP 50 7- 3- 0 DB 67 H ve RE 81 20 20 A 5 II SS 50 08 08 FA I IN 0 VT WI LY LB 0. UR 1 DI N MG SC J /M L DR ELY RA S Y DE 60 09 09 02 5. 16 PI 51 SM Ac SM 50 -2 -2 00 C/ 85 IT ti OP 50 7- 6- 0 DB 17 H ve RE 81 20 20 A II SS 50 07 08 FA I IN 0 VT WI LY LB 0. UR 1 DI N MG SC J /M L DR ELY RA S Y DE 60 09 09 01 5. 16 PI 51 No Ac SM 50 -2 -1 00 C/ 85 t ti OP 50 7- 1- 0 DB 17 Av ve RE 81 20 20 A ai SS 50 07 08 FA la IN 0 VT bl LY e 0. 1 DI MG SC /M L DR ELY RA S Y DE 60 09 08 00 5. 16 PI 51 No Ac SM 50 -2 -1 00 C/ 85 t ti OP 50 7- 4- 0 DB 17 Av ve RE 81 20 20 A ai SS 50 07 08 FA la IN 0 VT bl LY e 0. 1 DI MG SC /M L DR ELY RA S Y DE 60 09 08 11 5. 16 PI 48 No Ac SM 50 -2 -0 00 C/ 76 t ti OP 50 7- 1- 0 DB 16 Av ve RE 81 20 20 A ai SS 50 07 08 FA la IN 0 VT bl LY e 0. 1 DI MG SC /M L DR ELY RA S Y DE 60 09 07 10 5. 16 PI 48 No Ac SM 50 -2 -0 00 C/ 76 t ti OP 50 7- 3- 0 DB 16 Av ve RE 81 20 20 A ai SS 50 07 08 FA la IN 0 VT bl LY e 0. 1 DI MG SC /M L DR ELY RA S Y DE 60 09 05 08 5. 16 PI 48 No Ac SM 50 -2 -2 00 C/ 76 t ti OP 50 7- 2- 0 DB 16 Av ve RE 81 20 20 A ai SS 50 07 08 FA la IN 0 VT bl LY e 0. 1 DI MG SC /M L DR JHOANA CHATMAN RA S Y AM 00 04 05 00 10 10 PI 50 No Ac OX 09 -2 -0 0. C/ 89 t ti IC 34 1- 8- 00 DB 66 Av ve IL 15 20 20 0 A ai LI 57 08 08 FA la N 3 VT bl 25 LY e 0 MG DI /[address] CHATMAN PEREZ S SP NE 24 04 05 00 10 7 PI 50 No Ac OM 20 -2 -0 .0 C/ 91 t ti YC 80 2- 8- 00 DB 96 Av ve IN 63 20 20 A ai -P 11 08 08 FA la OL 0 VT bl YM LY e YX IN DI -H SC C EA DR Tee CHATMAN SO S LN DE 60 09 05 07 5. 16 PI 48 No Ac SM 50 -2 -0 00 C/ 76 t ti OP 50 7- 8- 0 DB 16 Av ve RE 81 20 20 A ai SS 50 07 08 FA la IN 0 VT bl LY e 0. 1 DI MG SC /M L DR JHOANA CHATMAN RA S Y DE 60 09 04 06 5. 17 PI 48 No Ac SM 50 -2 -1 00 C/ 76 t ti OP 50 7- 0- 0 DB 16 Av ve RE 81 20 20 A ai SS 50 07 08 FA la IN 0 VT bl LY e 0. 1 DI MG SC /M L DR JHOANA CHATMAN RA S Y DE 60 09 04 05 5. 17 PI 48 No Ac SM 50 -2 -0 00 C/ 76 t ti OP 50 7- 7- 0 DB 16 Av ve RE 81 20 20 A ai SS 50 07 08 FA la IN 0 VT bl LY e 0. 1 DI MG SC /M L DR JHOANA CHATMAN RA S Y 64 02 03 00 30 30 PI 50 No Ac 37 -2 -2 .0 C/ 28 t ti 60 2- 6- 00 DB 84 Av ve 72 20 20 A ai 63 08 08 FA la 0 VT bl LY e DI SC DR CHATMAN S CL 51 02 03 00 30 12 PI 50 No Ac OT 67 -2 -2 .0 C/ 28 t ti RI 21 2- 6- 00 DB 83 Av ve MA 27 20 20 A ai ZO 50 08 08 FA la LE 2 VT bl LY e 1% DI CR SC EA M DR CHATMAN S DE 60 09 03 04 5. 17 PI 48 No Ac SM 50 -2 -2 00 C/ 76 t ti OP 50 7- 6- 0 DB 16 Av ve RE 81 20 20 A ai SS 50 07 08 FA la IN 0 VT bl LY e 0. 1 DI MG SC /M L DR JHOANA CHATMAN RA S Y DE 60 09 03 03 5. 17 PI 48 No Ac SM 50 -2 -2 00 C/ 76 t ti OP 50 7- 4- 0 DB 16 Av ve RE 81 20 20 A ai SS 50 07 08 FA la IN 0 VT bl LY e 0. 1 DI MG SC /M L DR JHOANA CHATMAN RA S Y Procedures Procedure DOS Code Location Performer Comment BLOOD 67155 [place] COUNT 0 [facility] CENTER DIFRNTL WBC C-REACTIV 72914 [place] E PROTEIN 0 [facility] [place] [place] [address] [facility] PATHOLOGY [facility] GR[place] [address] ROSCOPIC EXAM CONIZATIO 51574 МАРИНА PARISH, N CERVIX 9 AND JUANITA W/WO D&C ZONIA RPR ELTRD PSC EXC COLPOSCOP 07925 МАРИНА PARISH, Y CERVIX 9 AND JUANITA UPPR/ADJC ZONIA NT VAGINA PSC W/[place] [address] ROSCOPIC EXAM CHOLESTER 41399 DHS/CO BATH CO OL 9 [facility] SER[facility] LE BLOOD BANK ACCT TOTAL GLUC BLD 39412 [facility] BATH CO GLUC MNTR 9 [facility] DEV [facility] CLEARED BANK ACCT FDA SPEC HOME USE BLOOD 25807 [facility] BATH CO COUNT 9 [facility] HEMOGLOBI [facility] N BANK ACCT IADNA 95869 [facility] BATH CO CHLAMYDIA 9 [facility] TRACHOMAT BANK ACCT IS AMPLIFIED PROBE TQ IADNA 72481 DHS/CO BATH CO NEISSERIA 9 [facility] GONORRHOE BANK ACCT AE AMPLIFIED PROBE TQ CYTP 64556 [facility]ERV[facility]/ 9 [facility] VAGINAL CENTER REQ INTERP PHYSICIAN CYTP [address] [facility]ANK FARMER CERV/VAG 9 MEDICAL MEDICAL AUTO THIN CTR CTR LAYER PREP MNL SCREEN URNLS DIP 88561 [facility], 9 [facility] STICK/TAB LET RGNT AUTO W/O MICROSCOP Y OPHTH 31793 [facility] 8 AND EDWARD T XM&EVAL [facility] COMPRHNSV V[facility] ESTAB PT CTR PLL[facility] 1/> DETERMINA 89803 [facility] TION 8 AND [facility]WARD T REFRACTIV [facility] HX&XM NML 29731 [facility] NB INFT 7 Y OF RHY INITIATIO [facility] N DX&TX PEDIA Encounters Encounter Start End Date Code Location Performer Type Date HOSPITAL [place] - 0 0 [facility] MEDICAL T CENTER OFFICE 45746 [facility] 0 0 PHYSICIAN YUMI VARGAS 20 S MINUTES CORPORATI ON II EMERGENCY 08210 [facility], 0 0 TANESHA CORTEZ E [facility] T VISIT PHYS INC MODERATE SEVERITY OFFICE 29789 [facility] 0 [facility] T VISIT Y 15 MINUTES OFFICE 56206 LARRY PEREZ 9 9 AND JUANITA BRAR 10 PSC MINUTES [facility] 9 9 [facility] OFFICE 41497 BALBINA PEREZ 9 9 AND JUANITA BRAR NEW/ESTAB PSC PATIENT 15 MIN [facility] - 9 9 [facility] OFFICE 16953 BALBINA PEREZ 9 9 AND JUANITA BRAR NEW/ESTAB PSC PATIENT 30 MIN OFFICE 90275 DHS/CO BATH CO OUTPATIEN 9 9 [facility]ALTH [facility] T VISIT [facility] 15 BANK ACCT MINUTES PERIODIC 15513 [facility] BATH CO PREVENTIV 9 9 [facility] E MED EST [facility] PATIENT BANK ACCT 18-39 YRS [facility] - 9 9 MEDICAL OUTPATIEN CTR T OFFICE 17087 [facility], OUTPATIEN 9 9 [facility] T VISIT 15 MINUTES OFFICE 92578 [facility] OUTPATIEN 8 8 [facility] [place] [address] [facility]
--- OUTSIDE RECORDS SUMMARY | 2017-07-27 22:29 | External Medical Summary Rpt | CCD ---
Demographics Preferred Language Upper Sorbian Marital Status Unknown Judaism Affiliation Unknown Race Unknown Ethnic Group Unknown Author Author , GARRETT TUCKER Address Unknown Phone [email or web address] Immunization No patient found.
--- NOTE | 2017-07-27 23:25 | Emergency Room Report ---
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 N Clinical Suspician of Infection? N Mental Status: 1 - Regular (Normal Baseline) Sepsis Risk:Possible Sepsis Risk Have you (or family members/close friends) recently traveled outside the [place]? N If Yes, where/when: Have you had exposure to infectious disease within the past month? N TB? Other? Specify: Source patient, RN notes reviewed, family, RN/MD Exam Limitations no limitations Comment Patient slipped and fell down her porch stairs while arranging her Martha lights, just half an hour prior to arrival she is here complaining with LEFT lower extremity pain. ALLERGIES Coded Allergies: No Known Allergies (07/27/17) History Medical History General CAD? No Angina: No IA: No Hypertension? No Hyperlipidemia? No CHF? No DVT? No PE? No COPD? No Asthma? No Anemia? No GERD? No Gastric ulcers? No GI Bleed? No Hernia? No Thyroid Problems? No Hypothyroidism? No CVA? No Seizures? No Diabetes? No Renal Insuffiency? No End Stage Renal Disease? No UTI? No Stones? No BPH? No GB Disease: No Nephritic Syndrome? No Asplenia? No Hepatitis? No Sickle Cell Disease? No Arthritis? No Migraines? No Cataracts? No Glaucoma? No MRSA? No HIV? No TB? No Anxiety? No Depression? No Cancer? 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 No: respiratory distress. Lung Sounds bilateral: normal breath sounds, lungs clear. Cardiovascular normal exam, regular rate/rhythm, no peripheral edema, no gallop, no JVD, no murmur, no rub, normal peripheral pulses Gastrointestinal normal bowel sounds, normal exam, non tender, soft, no organomegaly Extremities left lower extremity pain, patient unable to localize source of pain. 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 No Comment 2310-patient reevaluated, appears to be stable medical condition, improving. Patient instructed to follow-up with one of the local orthopedic surgeons, for outpatient workup regarding possible LEFT knee ligament injury. Results/Orders Current Medication Orders Sig/Karoline Start time Last Medication Dose Route Stop Time Status Admin Tramadol HCl 1 JOHNNIE ONCE ONE 07/27 2345 DC 07/27 PO 07/27 2346 2343 Tramadol HCl 0 .STK-MED ONE 07/27 2339 DC PO Morphine Sulfate 4 MG ONCE ONE 07/27 2330 DC 07/27 IM 07/27 2331 2332 Ondansetron HCl 4 MG ONCE ONE 07/27 2330 DC 07/27 IM 07/27 2331 2331 Ondansetron HCl 0 .STK-MED ONE 07/27 2329 DC .ROUTE Morphine Sulfate 0 .STK-MED ONE 07/278 DC .ROUTE Orders Procedure Date/time Status STABILIZE JOINT 07/27 2322 Active STABILIZE JOINT 07/27 2321 Active XRAY/CT/US XRAY/CT/US XRAY pelvis- neg eft femur - neg left knee - neg left ankle - neg Departure Departure Time of Disposition 2321 Disposition DC Home or Self Care(routine) Clinical Impression Primary Impression: Sprain of left knee Qualifiers: Encounter type: initial encounter Involved ligament of knee: unspecified ligament Qualified Code: S83.92XA - Sprain of unspecified site of left knee, initial encounter Condition STABLE Referrals LILA VERNON, AGUSTIN DOS SANTOS: Tomorrow-Call Office Patient Instructions DI for Knee Sprain Additional Instructions Please follow up with the orthopedic surgeon as directed, take the pain medications as instructed. No weightbearing on the LEFT lower extremity till seen and evaluated by orthopedics. Discharge Counseling Counseled pt/family regarding diagnosis, test results, medications/RX, home care, follow up needs Comment Please follow up with the orthopedic surgeon as directed, take the pain medications as instructed. No weightbearing on the LEFT lower extremity till seen and evaluated by orthopedics. Prescriptions Current Visit Scripts Etodolac (Etodolac 200MG CAP) 200 MG PO QIDP PRN pain #30 CAP ED Critical Care Critical Care No at 0703
--- NOTE | 2017-07-27 23:25 | Emergency Room Report ---
History of Present Illness Time Seen by [id number] Presenting Problem in Triage Pt arrived:Wheelchair Presenting Problem:S/P FALL ON CONCRETE AND NOW C/O LEFT KNEE PAIN Onset of symptoms date/time:07/27/1706/03/2100 or onset unknown for: Treatment Prior to Arrival: [facility]N Provided by: Sepsis Risk Assessment: Temp: 98.8 B/P: 129/76 MAP: 93 Pulse: 91 Resp: 20 Recent fever? N Clinical Suspician of Infection? N Mental Status: 1 - Regular (Normal Baseline) Sepsis Risk:Possible Sepsis Risk Have you (or family members/close friends) recently traveled outside the [place]? N If Yes, where/when: Have you had exposure to infectious disease within the past month? N TB? Other? Specify: Source patient, RN notes reviewed, family, RN/MD Exam Limitations no limitations Comment Patient slipped and fell down her porch stairs while arranging her Martha lights, just half an hour prior to arrival she is here complaining with LEFT lower extremity pain. ALLERGIES Coded Allergies: No Known Allergies (07/27/17) History Medical History General CAD? No Angina: No VA: No Hypertension? No Hyperlipidemia? No CHF? No DVT? No PE? No COPD? No Asthma? No Anemia? No GERD? No Gastric ulcers? No GI Bleed? No Hernia? No Thyroid Problems? No Hypothyroidism? No CVA? No Seizures? No Diabetes? No Renal Insuffiency? No End Stage Renal Disease? No UTI? No Stones? No BPH? No GB Disease: No Nephritic Syndrome? No Asplenia? No Hepatitis? No Sickle Cell Disease? No Arthritis? No Migraines? No Cataracts? No Glaucoma? No MRSA? No HIV? No TB? No Anxiety? No Depression? No Cancer? 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 No: respiratory distress. Lung Sounds bilateral: normal breath sounds, lungs clear. Cardiovascular normal exam, regular rate/rhythm, no peripheral edema, no gallop, no JVD, no murmur, no rub, normal peripheral pulses Gastrointestinal normal bowel sounds, normal exam, non tender, soft, no organomegaly Extremities left lower extremity pain, patient unable to localize source of pain. 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 No Comment 2310-patient reevaluated, appears to be stable medical condition, improving. Patient instructed to follow-up with one of the local orthopedic surgeons, for outpatient workup regarding possible LEFT knee ligament injury. Results/Orders Current Medication Orders Sig/Karoline Start time Last Medication Dose Route Stop Time Status Admin Tramadol HCl 1 JOHNNIE ONCE ONE 07/27 2345 DC 07/27 PO 07/27 2346 2343 Tramadol HCl 0 .STK-MED ONE 07/27 2339 DC PO Morphine Sulfate 4 MG ONCE ONE 07/27 2330 DC 07/27 IM 07/27 2331 2332 Ondansetron HCl 4 MG ONCE ONE 07/27 2330 DC 07/27 IM 07/27 2331 2331 Ondansetron HCl 0 .STK-MED ONE 07/27 2329 DC .ROUTE Morphine Sulfate 0 .STK-MED ONE 07/278 DC .ROUTE Orders Procedure Date/time Status STABILIZE JOINT 07/27 2322 Active STABILIZE JOINT 07/27 2321 Active XRAY/CT/US XRAY/CT/US XRAY pelvis- neg eft femur - neg left knee - neg left ankle - neg Departure Departure Time of Disposition 2321 Disposition DC Home or Self Care(routine) Clinical Impression Primary Impression: Sprain of left knee Qualifiers: Encounter type: initial encounter Involved ligament of knee: unspecified ligament Qualified Code: S83.92XA - Sprain of unspecified site of left knee, initial encounter Condition STABLE Referrals LILA VERNON, AGUSTIN DOS SANTOS: Tomorrow-Call Office Patient Instructions DI for Knee Sprain Additional Instructions Please follow up with the orthopedic surgeon as directed, take the pain medications as instructed. No weightbearing on the LEFT lower extremity till seen and evaluated by orthopedics. Discharge Counseling Counseled pt/family regarding diagnosis, test results, medications/RX, home care, follow up needs Comment Please follow up with the orthopedic surgeon as directed, take the pain medications as instructed. No weightbearing on the LEFT lower extremity till seen and evaluated by orthopedics. Prescriptions Current Visit Scripts Etodolac (Etodolac 200MG CAP) 200 MG PO QIDP PRN pain #30 CAP ED Critical Care Critical Care No at 0703
[2017-07-27] MEDS ORDERED: ETODOLAC200 MG PO (23:30)
[2017-07-27 23:47] VITALS: BP 129/76
--- NOTE | 2017-07-28 06:12 | RADIOLOGY REPORT PS360 ---
KNEE-3 VIEWS-LT HISTORY: S/P FALL C/O LEFT KNEE PAIN ORDERING PHYSICIAN: Marcel Valera MD PATIENT AGE: 32 years COMPARISON: None FINDINGS: No fracture or dislocation. No lytic or blastic change. Normal mineralization. No significant arthritic changes evident. There may be a small suprapatellar effusion. IMPRESSION: Small suprapatellar effusion otherwise negative left knee
--- NOTE | 2017-07-28 06:12 | RADIOLOGY REPORT PS360 ---
PELVIS AP ONLY HISTORY: Pain following injury pain ORDERING PHYSICIAN: Marcel Valera MD PATIENT AGE: 32 years COMPARISON: None FINDINGS: No fracture or dislocation is evident. No significant degenerative change. No lytic or blastic change. The SI joints have an unremarkable appearance. Unremarkable soft tissues. IMPRESSION: Negative pelvis.
--- NOTE | 2017-07-28 06:13 | RADIOLOGY REPORT PS360 ---
ANKLE-LT-3 VIEWS HISTORY: Posttraumatic pain pain ORDERING PHYSICIAN: Marcel Valera MD PATIENT AGE: 32 years COMPARISON: None FINDINGS: No fracture or dislocation. No lytic or blastic change. There is normal mineralization.. The joint spaces are well-preserved. No significant degenerative/arthritic changes. No erosive changes evident. IMPRESSION: Negative ankle, no acute finding
--- NOTE | 2017-07-28 06:13 | RADIOLOGY REPORT PS360 ---
FEMUR-LT-2 VIEWS HISTORY: Pain following injury pain ORDERING PHYSICIAN: Marcel Valera MD PATIENT AGE: 32 years COMPARISON: None FINDINGS: No fracture or dislocation. No lytic or blastic change. There is normal mineralization. The joint spaces are well-preserved. No significant degenerative/arthritic changes. No erosive changes evident. IMPRESSION: Negative, no acute finding
== END 2017-07-27 23:48 | disposition home or self-care (01) ==
LOC: ER 22:14
DX: S83.92XA Sprain of unspecified site of left knee, initial encounter (principal); W10.8XXA Fall (on) (from) other stairs and steps, initial encounter; Y93.E9 Activity, other interior property and clothing maintenance; Y92.008 Other place in unspecified non-institutional (private) residence as the place of occurrence of the external cause; F17.210 Nicotine dependence, cigarettes, uncomplicated
CPT/HCPCS: J2405